=== PATIENT | female | born 1945 | race Caucasian/White ===

== ENCOUNTER 2018-01-15 17:42 | Inpatient (IN) ==
--- NOTE | 2018-01-15 18:23 | Emergency Department Note ---
Disposition Clinical Impression: Congestive heart failure, Frail elderly, Hypertension, Peripheral edema, Atrial fibrillation, History of coronary artery disease, Anemia, Abnormal chest x-ray Disposition: Admitted As Inpatient Condition: Fair Referrals: Barbara Mcnamara CNP [Primary Care Provider] - Forms: ED Satisfaction Letter General Adult HPI - General Chief complaint: ED Shortness of Breath/Dyspnea Stated complaint: EDI Time Seen by Provider: 01/15/18 18:23 Source: patient Limitations: no limitations - History of Present Illness HPI Narrative: 72-year-old female reports emergency department complaining of increasing lower extremity swelling bilaterally which has been progressive. She usually goes to the wound center has her legs wrapped. She states she went to the wound center today and they noted increasing swelling so they sent her into the ED. The patient denies any chest pain she has been short of breath. No coughing of blood. She has no history of atrial fibrillation she does not describe palpitations or passing out. There is no history of fever abdominal pain vomiting diarrhea acute back pain confusion or any trouble moving the arms or legs independently. The patient describes increasing leg swelling, shortness of breath which is been progressive, as well as weight gain. She usually sees the [facility] Dr. Bryan. She states she is not anticoagulated at this time. Pain Scale: 9 - Related Data Home Medications Medication Instructions Recorded Confirmed Atorvastatin Calcium [Lipitor] 20 mg PO DAILY 12/19/17 01/15/18 Furosemide [Lasix] 40 mg PO DAILY 12/19/17 01/15/18 Warfarin [Coumadin] 2.5 mg PO DAILY 12/19/17 01/15/18 Metoprolol Succinate [Toprol Xl] 50 mg PO DAILY 12/22/17 01/15/18 Aspirin [Lo-Dose Aspirin EC] 81 mg PO DAILY 01/15/18 01/15/18 Allergies Allergy/AdvReac Type Severity Reaction Status Date / Time aspirin [ASA] AdvReac Abdominal Verified 01/15/18 20:42 Pain promethazine [From Phenergan] AdvReac Confusion Verified 01/15/18 14:04 All systems ED: reviewed and negative except as stated. Past Medical History - Past Medical History Medical history: Reports: atrial fibrillation, hyperlipidemia, hypertension, myocardial infarction, other Surgical history: Reports: , hysterectomy Psychiatric history: Reports: anxiety, depression - Social History Smoking Status: Never smoker Smokeless Tobacco Status: No Alcohol use: Reports: none Drug use: Reports: none Physical Exam - General Limitations: no limitations General appearance: alert, in no apparent distress - Head Head exam: atraumatic, normocephalic, normal inspection - Eye Eye exam: Present: normal appearance, PERRL, EOMI. Absent: scleral icterus, conjunctival injection, nystagmus - ENT ENT exam: normal exam, normal oropharynx, mucous membranes moist, TM's normal bilaterally - Neck Neck exam: Present: normal inspection, full ROM, trachea midline. Absent: tenderness - Chest Chest inspection: Present: symmetric chest wall rise. Absent: tenderness - Respiratory Respiratory exam: Present: prolonged expiratory phase. Absent: respiratory distress, wheezes, stridor, accessory muscle use - Cardiovascular Cardiovascular exam: Present: irregular rhythm - Abdominal Exam Abdominal exam: Present: soft, Non-Tender, normal bowel sounds. Absent: tenderness, distention, guarding, rebound, rigidity, Bryson's sign, Rovsing's sign, tenderness at McBurney's Point, pulsatile mass - Extremities Exam Extremities exam: Present: full ROM, normal capillary refill, pedal edema. Absent: tenderness, joint swelling, calf tenderness - Expanded Lower Extremity Exam Neurovascular/Tendon exam: Absent: motor deficit, sensory deficit, tendon deficit, pallor - Back Exam Back exam: Present: normal inspection, full ROM. Absent: tenderness, CVA tenderness (R), CVA tenderness (L), vertebral tenderness - Neurological Exam Neurological exam: Present: alert, oriented X3, CN II-XII intact. Absent: motor sensory deficit - Psychiatric Psychiatric exam: Present: normal affect, normal mood - Skin Skin exam: Present: warm, dry, intact, normal color. Absent: rash, cyanosis, diaphoresis, pallor, mottled Course Vital Signs Temperature 98.5 F 01/15/18 18:14 Pulse Rate 116 01/15/18 18:14 Respiratory Rate 18 01/15/18 18:14 Blood Pressure 190/98 01/15/18 18:14 O2 Sat by Pulse Oximetry 95 01/15/18 18:14 Temperature 98.5 F 01/15/18 18:14 Pulse Rate 116 01/15/18 20:30 Respiratory Rate 16 01/15/18 20:30 Blood Pressure 172/104 01/15/18 20:30 O2 Sat by Pulse Oximetry 96 01/15/18 20:30 Oxygen Delivery Oxygen Delivery Room Air Medical Decision Making - MDM Narrative Medical decision making narrative: The patient has significant lower extremity edema, her chest x-ray shows changes suggestive of potential infiltrate versus increasing fluid, she has been dyspneic and has a notable history of CAD, CHF, as well as atrial fibrillation. Blood cultures were sent Levaquin were ordered, Lasix ordered. The patient has significant elevated blood pressures in the ED and evidences poor control. Based on her age, pulmonary symptomatology, cardiovascular risk factors, apparent CHF with potential pneumonia as well as hypertension, I thought it a would be appropriate to admit the patient to the hospital. I discussed the case with the hospitalist on-call who has accepted the patient to their care. - Lab Data Lab results reviewed: Yes I reviewed the patient's lab results. Result diagrams: 01/15/18 18:44 01/15/18 18:44 Lab Results 01/15/18 01/15/18 01/15/18 Range/Units 18:34 18:44 18:44 WBC 6.9 (4.3-11.1) K/mcL RBC 3.86 (3.82-4.97) M/mcL Hgb 11.1 L (11.5-15.4) g/dL Hct 35.0 L (35.3-44.9) % MCV 90.7 (83.0-100.0) fL MCH 28.8 (28.0-33.3) pg MCHC 31.7 (31.6-35.5) g/dL RDW 13.1 (11.5-14.5) % Plt Count 240 (140-400) K/mcL MPV 8.7 L (9.4-12.4) fL Immature Gran % 0.6 (0-4) % Seg Neutrophils % 71.4 % Lymphocytes % 16.5 % Monocytes % 7.8 % Eosinophils % 3.0 % Basophils % 0.7 % Neutrophils # 4.9 (1.6-8.9) K/mcL Lymphocytes # 1.1 (0.6-4.6) K/mcL Monocytes # 0.5 (0.0-1.3) K/mcL Eosinophils # 0.2 (0.0-0.6) K/mcL Basophils # 0.1 (0.0-0.2) K/mcL PT 11.5 (9.4-12.1) Seconds INR 1.1 APTT 26.6 (26.0-36.0) Seconds Sodium (136-145) mEq/L Potassium (3.5-5.1) mEq/L Chloride (98-107) mEq/L Carbon Dioxide (23-29) mEq/L BUN (8-23) mg/dL Creatinine (0.60-1.20) mg/dL Est GFR ( Amer) (> 60) Est GFR (Non-Af Amer) (> 60) BUN/Creatinine Ratio (6-26) Glucose (70-105) mg/dL Calculated Osmolality (280-300) Lactic Acid (0.5-2.2) mmol/L Calcium (8.6-10.3) mg/dL Total Bilirubin (0.3-1.0) mg/dL Direct Bilirubin (0.0-0.2) mg/dL Indirect Bilirubin (0.0-1.2) mg/dL AST (13-39) Units/L ALT (7-52) Units/L Alkaline Phosphatase (34-104) Units/L Troponin I (< 0.04) ng/mL B-Natriuretic Peptide (Less than 100) pg/mL Serum Total Protein (6.4-8.9) g/dL Albumin (3.5-5.7) g/dL Globulin (2.4-3.5) g/dL Albumin/Globulin Ratio (1.1-2.2) Urine Color Yellow (Yellow) Urine Clarity Clear (Clear) Urine pH 6.0 (5.0-8.0) pH Units Ur Specific [place] 1.019 (1.010-1.025) Urine Protein Negative (Neg-Trace) mg/dL Urine Glucose (UA) Normal (Normal) mg/dL Urine Ketones Negative (Negative) mg/dL Urine Blood Trace H (Negative) Urine Nitrite Negative (Negative) Urine Bilirubin Negative (Negative) Urine Urobilinogen Normal (Normal) mg/dL Ur Leukocyte Esterase Negative (Negative) Urine Microscopic RBC 0-3 (0-3) per hpf Urine Microscopic WBC 0-3 (0-3) per hpf Ur Squamous Epith Cells Moderate H (None-Few) per lpf Urine Bacteria None Seen (None-Few) per hpf Hyaline Casts None Seen (None-Few) per lpf Ur Culture Indicated? NO (NO) 01/15/18 01/15/18 01/15/18 Range/Units 18:44 18:44 19:21 WBC (4.3-11.1) K/mcL RBC (3.82-4.97) M/mcL Hgb (11.5-15.4) g/dL Hct (35.3-44.9) % MCV (83.0-100.0) fL MCH (28.0-33.3) pg MCHC (31.6-35.5) g/dL RDW (11.5-14.5) % Plt Count (140-400) K/mcL MPV (9.4-12.4) fL Immature Gran % (0-4) % Seg Neutrophils % % Lymphocytes % % Monocytes % % Eosinophils % % Basophils % % Neutrophils # (1.6-8.9) K/mcL Lymphocytes # (0.6-4.6) K/mcL Monocytes # (0.0-1.3) K/mcL Eosinophils # (0.0-0.6) K/mcL Basophils # (0.0-0.2) K/mcL PT (9.4-12.1) Seconds INR APTT (26.0-36.0) Seconds Sodium 138 (136-145) mEq/L Potassium 3.9 (3.5-5.1) mEq/L Chloride 106 (98-107) mEq/L Carbon Dioxide 22 L (23-29) mEq/L BUN 14 (8-23) mg/dL Creatinine 0.74 (0.60-1.20) mg/dL Est GFR ( Amer) > 60 (> 60) Est GFR (Non-Af Amer) > 60 (> 60) BUN/Creatinine Ratio 19 (6-26) Glucose 96 (70-105) mg/dL Calculated Osmolality 286 (280-300) Lactic Acid 1.2 (0.5-2.2) mmol/L Calcium 8.9 (8.6-10.3) mg/dL Total Bilirubin 0.4 (0.3-1.0) mg/dL Direct Bilirubin 0.2 (0.0-0.2) mg/dL Indirect Bilirubin 0.2 (0.0-1.2) mg/dL AST 16 (13-39) Units/L ALT 11 (7-52) Units/L Alkaline Phosphatase 89 (34-104) Units/L Troponin I < 0.03 (< 0.04) ng/mL B-Natriuretic Peptide 430 H (Less than 100) pg/mL Serum Total Protein 6.8 (6.4-8.9) g/dL Albumin 3.5 (3.5-5.7) g/dL Globulin 3.3 (2.4-3.5) g/dL Albumin/Globulin Ratio 1.1 (1.1-2.2) Urine Color (Yellow) Urine Clarity (Clear) Urine pH (5.0-8.0) pH Units Ur Specific [place] (1.010-1.025) Urine Protein (Neg-Trace) mg/dL Urine Glucose (UA) (Normal) mg/dL Urine Ketones (Negative) mg/dL Urine Blood (Negative) Urine Nitrite (Negative) Urine Bilirubin (Negative) Urine Urobilinogen (Normal) mg/dL Ur Leukocyte Esterase (Negative) Urine Microscopic RBC (0-3) per hpf Urine Microscopic WBC (0-3) per hpf Ur Squamous Epith Cells (None-Few) per lpf Urine Bacteria (None-Few) per hpf Hyaline Casts (None-Few) per lpf Ur Culture Indicated? (NO) - Radiology Data Radiology results reviewed: Yes I reviewed the patient's radiology results.
[2018-01-15 18:50] LABS: Bilirubin,Urine Negative (Negative); Blood,Urine Trace (Negative); Clarity,Urine Clear (Clear); Color,Urine Yellow (Yellow); Glucose,Urine (UA) Normal (Normal); Ketones,Urine Negative (Negative); Leukocyte Esterase,Urine Negative (Negative); Nitrite,Urine Negative (Negative); Protein,Urine Negative (Neg-Trace); Specific Gravity,Urine 1.019 (1.010-1.025); Urobilinogen,Urine Normal (Normal)
[2018-01-15 18:53] LABS: Bacteria,Urine None Seen per hpf (None-Few); Hyaline Casts,Urine None Seen per lpf (None-Few); RBC,Urine 0-3 per hpf (0-3); Squamous Epithelial Cell,Urine Moderate per lpf (None-Few); WBC,Urine 0-3 per hpf (0-3)
[2018-01-15 19:02] LABS: Basophils # 0.1 K/mcL (0.0-0.2); Basophils % 0.7 %; Eosinophils # 0.2 K/mcL (0.0-0.6); Hemoglobin 11.1 g/dL (11.5-15.4); Immature Granulocytes % 0.6 % (0-4); Lymphocytes # 1.1 K/mcL (0.6-4.6); Lymphocytes % 16.5 %; Mean Corpuscular HGB Conc 31.7 g/dL (31.6-35.5); Mean Corpuscular Hemoglobin 28.8 pg (28.0-33.3); Mean Corpuscular Volume 90.7 fL (83.0-100.0); Mean Platelet Volume 8.7 fL (9.4-12.4); Monocytes # 0.5 K/mcL (0.0-1.3); Monocytes % 7.8 %; Neutrophils # 4.9 K/mcL (1.6-8.9); Platelet Count 240 K/mcL (140-400); Red Blood Count 3.86 M/mcL (3.82-4.97); Red Cell Distribution Width 13.1 % (11.5-14.5); Segmented Neutrophils % 71.4 %
[2018-01-15 19:07] LABS: INR 1.1; Prothrombin Time 11.5 Seconds (9.4-12.1)
[2018-01-15 19:10] LABS: Activated Partial Thrombo Time 26.6 Seconds (26.0-36.0)
[2018-01-15 19:16] LABS: Troponin I < 0.03 ng/mL (< 0.04)
[2018-01-15 19:31] LABS: Alanine Aminotransferase 11 Units/L (7-52); Albumin 3.5 g/dL (3.5-5.7); Albumin/Globulin Ratio 1.1 (1.1-2.2); Alkaline Phosphatase 89 Units/L (34-104); Aspartate Amino Transferase 16 Units/L (13-39); BUN/Creatinine Ratio 19 (6-26); Bilirubin,Direct 0.2 mg/dL (0.0-0.2); Bilirubin,Indirect 0.2 mg/dL (0.0-1.2); Bilirubin,Total 0.4 mg/dL (0.3-1.0); Blood Urea Nitrogen 14 mg/dL (8-23); Calcium 8.9 mg/dL (8.6-10.3); Carbon Dioxide 22 mEq/L (23-29); Chloride 106 mEq/L (98-107); Globulin 3.3 g/dL (2.4-3.5); Glucose 96 mg/dL (70-105); Osmolality,Calculated 286 (280-300); Potassium 3.9 mEq/L (3.5-5.1); Sodium 138 mEq/L (136-145); Total Protein 6.8 g/dL (6.4-8.9); eGFR For African Americans > 60 (> 60); eGFR For Non-African Americans > 60 (> 60)
[2018-01-15] MEDS ORDERED: Levofloxacin 750 MG/150 ML 750 MG/150 ML BAG IVPB ONE (20:03)
[2018-01-15] MEDS ORDERED: Furosemide 80 MG in 0.9 % Sodium Chloride 50 ML IVPB ONE (20:04)
[2018-01-15] MEDS ORDERED: Nitroglycerin 1 INCH/GM PACKET TP ONE (20:18)
[2018-01-15] MEDS ORDERED: Furosemide 100 MG/10 ML VIAL ONE (20:32)
--- NOTE | 2018-01-15 21:27 | Internal Med History&Physical ---
Date of Encounter: 01/15/18 Time of Encounter: 21:24 Assessment and Plan (1) Congestive heart failure Current visit: Yes Status: Acute I do not see TTE from prior. We will order an echo in the morning. We will aggressively diuresed with IV Lasix, low-salt diet, I's and O's Qualifiers: Heart failure type: combined systolic and diastolic Qualified Code(s): I50.40 - Unspecified combined systolic (congestive) and diastolic (congestive) heart failure (2) Atrial fibrillation Current visit: Yes Status: Acute Continue Coumadin, trend INR, continue rate control, check magnesium and potassium Qualifiers: Atrial fibrillation type: chronic Qualified Code(s): I48.2 - Chronic atrial fibrillation (3) Abnormal chest x-ray Current visit: Yes Status: Acute Based on clinical history I have less a suspicion this represents pneumonia. We would diabetes patient IV Lasix, aggressive incentive spirometer, repeat 2 view x-ray in the morning She has been given Levaquin in the ER for empiric pneumonia therapy Further management pending hospital course (4) Hypertension Current visit: Yes Status: Acute on medicines Qualifiers: Hypertension type: essential hypertension Qualified Code(s): I10 - Essential (primary) hypertension Internal Medicine - H&P: HPI Chief complaint: SOB, LE swelling History of present illness: Ms. Santana is a 72 year old female with hx of AFib, CHF who presents with progressive SOB, LE swelling suspicious for CHF flare. Patient is under the care of Dr. Bryan and has a history of CHF on 40 mg by mouth Lasix every day. She has lower extremity swelling and visits the wound center 3 times weekly for compression bandages. She was advised by wound care clinic to present to the hospital due to worsening of lower extremity swelling. In addition she is also experiencing progressively worsening shortness of breath in the past 2 weeks with dyspnea on exertion from the car to her house. She does not use oxygen at baseline. She reports expressing weight gain from 130 pounds 170 pounds in the last 5-6 months. On review she denies any fevers, chills, cough, nasal congestion, note that she gives overt clinical symptoms of pneumonia She is on Coumadin for atrial fibrillation. EKG personally reviewed with atrial fibrillation, rate 97 XR/XR chest 1V portable IMPRESSION: Patchy airspace disease in the lower lungs bilaterally, greater on the right, atelectasis versus edema versus pneumonia. Cardial -pericardial silhouette enlargement. Again, no comparisons are available to gauge stability. In this situation, differential considerations include both pericardial effusion and cardiomyopathy. Past Med Surg Social Fam HX - Past Medical History Medical history: atrial fibrillation, hyperlipidemia, hypertension, myocardial infarction, other Psychiatric history: anxiety, depression - Past Surgical History Surgical History: , hysterectomy - Social History Smoking Status: Never smoker Smokeless Tobacco Status: No Alcohol use: none Drug use: none - Family History Mother Family Member Ethnicity: Non- Living Status: Hx Family Cardiac Disorders: Yes Hx Family Respiratory Disorders: No Hx Family Cancer: Yes Hx Family GI Disorders: No Hx Family Endocrine Disorder: No Hx Family Neuromuscular Disorders: No Hx Family Neurologic Disorders: No Hx Family HEENT Disorders: No Hx Family Autoimmune Disorders: Yes Internal Medicine - H&P: Meds Atorvastatin Calcium [Lipitor] 20 mg PO HS 12/19/17 [History] Metoprolol Succinate [Toprol Xl] 50 mg PO DAILY 12/22/17 [History] Aspirin [Lo-Dose Aspirin EC] 81 mg PO DAILY 01/15/18 [History] Buspirone HCl [Buspar] 7.5 mg PO BID PRN 01/15/18 [History] Furosemide [Lasix] 40 mg PO DAILY 01/15/18 [History] Lisinopril [Zestril] 10 mg PO DAILY 01/15/18 [History] Nitroglycerin [Nitrostat] 0.4 mg SL Q5M PRN 01/15/18 [History] Warfarin Sodium [Warfarin Sodium] 3 mg PO DAILY 01/15/18 [History] 3 Allergy/AdvReac Type Severity Reaction Status Date / Time aspirin [ASA] AdvReac Abdominal Verified 01/15/18 20:42 Pain promethazine [From Phenergan] AdvReac Confusion Verified 01/15/18 14:04 All Systems PM: A 10-system review of systems was performed and is negative for pertinent findings except as documented above in the HPI. Review of systems: ROS 14 point review of systems reviewed as best as possible given presentation. Pertinent positive or negative as per HPI or otherwise reviewed as negative - Constitutional Vitals: Temp Pulse Resp BP Pulse Ox 98.5 F 116 16 172/104 96 01/15/18 18:14 01/15/18 20:30 01/15/18 20:30 01/15/18 20:30 01/15/18 20:30 Exam: General - AAO x 3 Psych - Appropriate affect/speech. No agitation Eyes - NICHOLAS. Eye lids intact. No scleral icterus Neuro - No gross peripheral or central neuro deficits on inspection Heart - Sinus. RRR. S1 and S2 present. No added HS/murmurs appreciated. No elevated JVD appreciated. Lung - Adequate air entry b/l, bibasal crackles, no wheeze appreciated GI - Soft, non-tender. No hepatosplenomegaly/ascites. BS+ - No CVA/suprapubic tenderness or palpable bladder distension Skin - Intact. No rash/petechiae/ecchymosis. Her extremity with compression bandage Internal Med - H&P Results - Labs CBC & Chem 7: 01/15/18 18:44 01/15/18 18:44 Labs: Short CBC 01/15/18 01/15/18 01/15/18 Range/Units 18:34 18:44 18:44 WBC 6.9 (4.3-11.1) K/mcL RBC 3.86 (3.82-4.97) M/mcL Hgb 11.1 L (11.5-15.4) g/dL Hct 35.0 L (35.3-44.9) % MCV 90.7 (83.0-100.0) fL MCH 28.8 (28.0-33.3) pg MCHC 31.7 (31.6-35.5) g/dL RDW 13.1 (11.5-14.5) % Plt Count 240 (140-400) K/mcL MPV 8.7 L (9.4-12.4) fL Immature Gran % 0.6 (0-4) % Seg Neutrophils % 71.4 % Lymphocytes % 16.5 % Monocytes % 7.8 % Eosinophils % 3.0 % Basophils % 0.7 % Neutrophils # 4.9 (1.6-8.9) K/mcL Lymphocytes # 1.1 (0.6-4.6) K/mcL Monocytes # 0.5 (0.0-1.3) K/mcL Eosinophils # 0.2 (0.0-0.6) K/mcL Basophils # 0.1 (0.0-0.2) K/mcL PT 11.5 (9.4-12.1) Seconds INR 1.1 APTT 26.6 (26.0-36.0) Seconds Sodium (136-145) mEq/L Potassium (3.5-5.1) mEq/L Chloride (98-107) mEq/L Carbon Dioxide (23-29) mEq/L BUN (8-23) mg/dL Creatinine (0.60-1.20) mg/dL Est GFR ( Amer) (> 60) Est GFR (Non-Af Amer) (> 60) BUN/Creatinine Ratio (6-26) Glucose (70-105) mg/dL Calculated Osmolality (280-300) Lactic Acid (0.5-2.2) mmol/L Calcium (8.6-10.3) mg/dL Total Bilirubin (0.3-1.0) mg/dL Direct Bilirubin (0.0-0.2) mg/dL Indirect Bilirubin (0.0-1.2) mg/dL AST (13-39) Units/L ALT (7-52) Units/L Alkaline Phosphatase (34-104) Units/L Troponin I (< 0.04) ng/mL B-Natriuretic Peptide (Less than 100) pg/mL Serum Total Protein (6.4-8.9) g/dL Albumin (3.5-5.7) g/dL Globulin (2.4-3.5) g/dL Albumin/Globulin Ratio (1.1-2.2) Urine Color Yellow (Yellow) Urine Clarity Clear (Clear) Urine pH 6.0 (5.0-8.0) pH Units Ur Specific [place] 1.019 (1.010-1.025) Urine Protein Negative (Neg-Trace) mg/dL Urine Glucose (UA) Normal (Normal) mg/dL Urine Ketones Negative (Negative) mg/dL Urine Blood Trace H (Negative) Urine Nitrite Negative (Negative) Urine Bilirubin Negative (Negative) Urine Urobilinogen Normal (Normal) mg/dL Ur Leukocyte Esterase Negative (Negative) Urine Microscopic RBC 0-3 (0-3) per hpf Urine Microscopic WBC 0-3 (0-3) per hpf Ur Squamous Epith Cells Moderate H (None-Few) per lpf Urine Bacteria None Seen (None-Few) per hpf Hyaline Casts None Seen (None-Few) per lpf Ur Culture Indicated? NO (NO) 01/15/18 01/15/18 01/15/18 Range/Units 18:44 18:44 19:21 WBC (4.3-11.1) K/mcL RBC (3.82-4.97) M/mcL Hgb (11.5-15.4) g/dL Hct (35.3-44.9) % MCV (83.0-100.0) fL MCH (28.0-33.3) pg MCHC (31.6-35.5) g/dL RDW (11.5-14.5) % Plt Count (140-400) K/mcL MPV (9.4-12.4) fL Immature Gran % (0-4) % Seg Neutrophils % % Lymphocytes % % Monocytes % % Eosinophils % % Basophils % % Neutrophils # (1.6-8.9) K/mcL Lymphocytes # (0.6-4.6) K/mcL Monocytes # (0.0-1.3) K/mcL Eosinophils # (0.0-0.6) K/mcL Basophils # (0.0-0.2) K/mcL PT (9.4-12.1) Seconds INR APTT (26.0-36.0) Seconds Sodium 138 (136-145) mEq/L Potassium 3.9 (3.5-5.1) mEq/L Chloride 106 (98-107) mEq/L Carbon Dioxide 22 L (23-29) mEq/L BUN 14 (8-23) mg/dL Creatinine 0.74 (0.60-1.20) mg/dL Est GFR ( Amer) > 60 (> 60) Est GFR (Non-Af Amer) > 60 (> 60) BUN/Creatinine Ratio 19 (6-26) Glucose 96 (70-105) mg/dL Calculated Osmolality 286 (280-300) Lactic Acid 1.2 (0.5-2.2) mmol/L Calcium 8.9 (8.6-10.3) mg/dL Total Bilirubin 0.4 (0.3-1.0) mg/dL Direct Bilirubin 0.2 (0.0-0.2) mg/dL Indirect Bilirubin 0.2 (0.0-1.2) mg/dL AST 16 (13-39) Units/L ALT 11 (7-52) Units/L Alkaline Phosphatase 89 (34-104) Units/L Troponin I < 0.03 (< 0.04) ng/mL B-Natriuretic Peptide 430 H (Less than 100) pg/mL Serum Total Protein 6.8 (6.4-8.9) g/dL Albumin 3.5 (3.5-5.7) g/dL Globulin 3.3 (2.4-3.5) g/dL Albumin/Globulin Ratio 1.1 (1.1-2.2) Urine Color (Yellow) Urine Clarity (Clear) Urine pH (5.0-8.0) pH Units Ur Specific [place] (1.010-1.025) Urine Protein (Neg-Trace) mg/dL Urine Glucose (UA) (Normal) mg/dL Urine Ketones (Negative) mg/dL Urine Blood (Negative) Urine Nitrite (Negative) Urine Bilirubin (Negative) Urine Urobilinogen (Normal) mg/dL Ur Leukocyte Esterase (Negative) Urine Microscopic RBC (0-3) per hpf Urine Microscopic WBC (0-3) per hpf Ur Squamous Epith Cells (None-Few) per lpf Urine Bacteria (None-Few) per hpf Hyaline Casts (None-Few) per lpf Ur Culture Indicated? (NO) BMP 01/15/18 18:44 Sodium 138 Potassium 3.9 Chloride 106 Carbon Dioxide 22 L BUN 14 Creatinine 0.74 Glucose 96 Calcium 8.9 Cardiac Enzymes 01/15/18 Range/Units 18:44 Troponin I < 0.03 (< 0.04) ng/mL Liver Function 01/15/18 Range/Units 18:44 Total Bilirubin 0.4 (0.3-1.0) mg/dL Direct Bilirubin 0.2 (0.0-0.2) mg/dL AST 16 (13-39) Units/L ALT 11 (7-52) Units/L Alkaline Phosphatase 89 (34-104) Units/L Albumin 3.5 (3.5-5.7) g/dL Urine 01/15/18 Range/Units 18:34 Urine Color Yellow (Yellow) Urine Clarity Clear (Clear) Urine pH 6.0 (5.0-8.0) pH Units Ur Specific [place] 1.019 (1.010-1.025) Urine Protein Negative (Neg-Trace) mg/dL Urine Glucose (UA) Normal (Normal) mg/dL - Impressions ITS Impressions Chest X-Ray 01/15/18 18:24 IMPRESSION: Patchy airspace disease in the lower lungs bilaterally, greater on the right, atelectasis versus edema versus pneumonia. Cardial -pericardial silhouette enlargement. Again, no comparisons are available to gauge stability. In this situation, differential considerations include both pericardial effusion and cardiomyopathy. D/ / Jax Traore MD / Jax Traore MD Interpreting Provider: Jax Traore MD
[2018-01-15] MEDS ORDERED: Naloxone 0.4 MG/ML INJ IVP PRN (21:32)
[2018-01-15] MEDS ORDERED: Potassium Chloride Elixir 20 MEQ/15 ML UDC PO ONE (21:36)
[2018-01-16] MEDS ORDERED: Acetaminophen/Butalbital/CaffeineTABLET PO PRN (02:35)
[2018-01-16] MEDS: *HR* Metoprolol 5 MG/5 ML VIAL IVP PRN (03:15)
[2018-01-16] MEDS: Acetaminophen 325 MG TABLET PO PRN ×2 (06:15→17:42)
[2018-01-16 07:30] LABS: INR 1.2; Prothrombin Time 13.3 Seconds (9.4-12.1)
[2018-01-16 07:33] LABS: BUN/Creatinine Ratio 14 (6-26); Blood Urea Nitrogen 12 mg/dL (8-23); Calcium 8.8 mg/dL (8.6-10.3); Carbon Dioxide 28 mEq/L (23-29); Chloride 104 mEq/L (98-107); Glucose 111 mg/dL (70-105); Magnesium 1.8 mg/dL (1.6-2.6); Osmolality,Calculated 286 (280-300); Sodium 138 mEq/L (136-145); eGFR For African Americans > 60 (> 60); eGFR For Non-African Americans > 60 (> 60)
[2018-01-16] MEDS: Furosemide 40 MG/4 ML VIAL IVP SCH (10:26)
[2018-01-16] MEDS: Metoprolol XL (24 HR) Succ 50 MG TAB.ER.24H PO SCH (14:16)
[2018-01-16] MEDS: Aspirin Enteric Coated 81 MG Tablet PO SCH (14:16)
--- NOTE | 2018-01-16 17:19 | Internal Med Progress Note ---
Date of Encounter: 01/16/18 Time of Encounter: 17:13 - Assessment and plan (1) Acute diastolic heart failure Current Visit: Yes Status: Acute Assessment and plan: suspected. Presented with progressive, worsening SOB. BNP 430, CXR concerning for edema versus pneumonia. Symptoms more consistent with pulmonary edema with lower extremity edema, shortness of breath, afebrile and nonproductive cough. Repeat CXR with improvement and edema after IV Lasix. TTE with EF 60%, and indeterminate systolic dysfunction, [id number] tricuspid regurgitation and mild pulmonic regurgitation. Continue home ASA, BB. Continue IV diuresis for now, daily weights, strict I's and O's. (2) Wound of lower extremity Current Visit: Yes Status: Acute Assessment and plan: per hx. follows with wound clinic. Consult wound care, bilateral lower extreme Dopplers pending. Qualifiers: Encounter type: initial encounter Laterality: unspecified laterality Qualified Code(s): S81.809A - Unspecified open wound, unspecified lower leg, initial encounter (3) Atrial fibrillation Current Visit: Yes Status: Acute Assessment and plan: per hx. Rate controlled. Cont home BBjovita Qualifiers: Atrial fibrillation type: chronic Qualified Code(s): I48.2 - Chronic atrial fibrillation (4) Hypertension Current Visit: Yes Status: Acute Assessment and plan: per hx. BP uncontrolled. Continue home VIGNESH, add amlodipine. Monitor BP and titrate PRN Qualifiers: Hypertension type: essential hypertension Qualified Code(s): I10 - Essential (primary) hypertension (5) DVT prophylaxis Current Visit: Yes Status: Acute Assessment and plan: coumadin - Subjective Interval history: Seen and examined at bedside, patient is new to me. Information obtained from chart review, family at bedside and patient report. Still with complaint of shortness of breath with exertion however significantly improved. Denies shortness of breath at rest. No chest pain. Patient reports chronic back pain that prevents her from laying flat therefore she sits up all night long likely contributing to lower extremity edema. Follows with the wound care clinic for weekly dressing changes. - Constitutional Vitals: Temp Pulse Resp BP Pulse Ox 98.3 F 96 14 151/103 97 01/16/18 10:25 01/16/18 10:25 01/16/18 10:25 01/16/18 10:25 01/16/18 10:25 General appearance: Present: A&O X 3, no acute distress - Head Head exam: Present: atraumatic, normocephalic - Eye Eye exam: Present: PERRL, conjuntiva pink, sclera anicteric Pupils: Present: PERRL - Neck Neck exam general surgery: Present: supple, trachea midline. Absent: lymphadenopathy - Respiratory Respiratory exam: Present: decreased breath sounds. Absent: accessory muscle use, rales, rhonchi, wheezes - Cardiovascular Cardiovascular exam: Present: RRR, +S1, +S2. Absent: diastolic murmur, gallop, rubs, systolic murmur - GI/Abdominal GI/Abdominal exam: Present: normal bowel sounds, soft, no peritoneal signs. Absent: distended, tenderness - Extremities Exam Extremities exam: Present: pedal edema, warm, radial pulses palpable and symmetrical. Absent: calf tenderness, cyanotic - Neurological Exam Neurological exam: Present: CN II-XII intact, oriented X3, no focal deficits. Absent: pronater drift, facial droop, speech deficit - Skin Skin exam: Present: dry, intact Internal Medicine: Result - Labs CBC & Chem 7: 01/15/18 18:44 01/16/18 06:35 Labs: BMP 01/16/18 06:35 Sodium 138 Potassium 4.0 Chloride 104 Carbon Dioxide 28 BUN 12 Creatinine 0.83 Glucose 111 H Calcium 8.8 - ABG Interpretation ABG results: PT/INR, D-dimer PT 13.3 Seconds (9.4-12.1) H 01/16/18 06:35 - Impressions Impressions Chest X-Ray 01/16/18 09:00 IMPRESSION: Overall improvement of mild pulmonary edema. Small bilateral pleural effusions noted. D/ / Elsie Jack MD / Elsie Jack MD Interpreting Provider: Elsie Jack MD Echocardiogram 01/16/18 11:00 Impressions: LVEF 60-65%. Mild concentric left ventricular hypertrophy. Basal sigmoid septum. Indeterminate diastolic function. Normal right ventricular structure and function. Severe bi-atrial enlargement. Mild-moderate tricuspid regurgitation. Mild pulmonic regurgitation. Moderate pulmonary hypertension. Left Ventricular Wall Motion: Rest Echo Findings All wall segments showed normal motion. Findings: Study Quality * Technically adequate exam. ECG Findings * Atrial fibrillation. Left Ventricle * LVEF 60-65%. * Mild concentric left ventricular hypertrophy. * Basal sigmoid septum. * Indeterminate diastolic function. Right Ventricle * Normal right ventricular structure and function. Left Atrium * Severely dilated left atrium. Right Atrium * Severely dilated right atrium. Mitral Valve * Mild-moderate mitral regurgitation. * No mitral stenosis. * Mildly calcified mitral valve leaflets. Aortic Valve * No aortic regurgitation. * Aortic valve not well visualized. * No aortic stenosis. Tricuspid Valve * Normal tricuspid valve structure. * Mild-moderate tricuspid regurgitation. * Estimated RA pressure is 8 mmHg. * Estimated RVSP is 51 mmHg. * Moderate pulmonary hypertension. Pulmonic Valve * Pulmonic valve is not well visualized. * No pulmonic stenosis. * Mild pulmonic regurgitation. Pulmonary Artery * Pulmonary artery not well visualized. Aorta * Normally sized aortic root. Pericardium * There is no pericardial effusion present. Interatrial Septum * No evidence of PFO by color Doppler. IVC * The IVC is not dilated. * < 50% respiratory change. Consult Discharge Plan - Plan Referrals: Barbara Mcnamara, [employer] [Primary Care Provider] -
[2018-01-16] MEDS: *HR* Warfarin 5 MG TABLET PO SCH (17:42)
[2018-01-16] MEDS ORDERED: *HR* Warfarin 3 MG TABLET PO SCH (18:00)
[2018-01-16] MEDS: amLODIPine 5 MG TABLET PO SCH (20:04)
[2018-01-17] MEDS: *HR* Metoprolol 5 MG/5 ML VIAL IVP PRN (04:10)
[2018-01-17 05:14] LABS: INR 1.2; Prothrombin Time 12.6 Seconds (9.4-12.1)
[2018-01-17 05:22] LABS: BUN/Creatinine Ratio 22 (6-26); Blood Urea Nitrogen 18 mg/dL (8-23); Calcium 8.6 mg/dL (8.6-10.3); Carbon Dioxide 29 mEq/L (23-29); Chloride 103 mEq/L (98-107); Glucose 100 mg/dL (70-105); Magnesium 1.9 mg/dL (1.6-2.6); Osmolality,Calculated 288 (280-300); Potassium 3.8 mEq/L (3.5-5.1); Sodium 138 mEq/L (136-145); eGFR For African Americans > 60 (> 60); eGFR For Non-African Americans > 60 (> 60)
--- NOTE | 2018-01-17 06:38 | Electrocardiograph Report ---
[place] [id number] Test Date: 2018-01-15 Pat Name: Khalida Santana Department: 103 Room: 2N4 Gender: F Top Screw: EKP : 1945 Requested By: Valentín Banda Order Number: [id number] Reading MD: Kale Dent MD Measurements Intervals [place] Rate: 97 P: ME: 0 QRS: -6 QRSD: 82 T: 5 QT: 357 QTc: 412 Interpretive Statements ATRIAL FIBRILLATION Electronically Signed On 01-17-2018 6:36:42 EDT by Kale Dent MD
[2018-01-17] MEDS: Furosemide 40 MG/4 ML VIAL IVP SCH (10:04)
[2018-01-17] MEDS: amLODIPine 5 MG TABLET PO SCH (10:04)
[2018-01-17] MEDS: Metoprolol XL (24 HR) Succ 50 MG TAB.ER.24H PO SCH (10:04)
[2018-01-17] MEDS: Aspirin Enteric Coated 81 MG Tablet PO SCH (10:04)
--- NOTE | 2018-01-17 11:11 | Internal Med Progress Note ---
Date of Encounter: 01/17/18 Time of Encounter: 11:09 - Assessment and plan (1) Acute diastolic heart failure Current Visit: Yes Status: Acute Assessment and plan: suspected. Presented with progressive, worsening SOB. BNP 430, CXR concerning for edema versus pneumonia. Symptoms more consistent with pulmonary edema with lower extremity edema, shortness of breath, afebrile and nonproductive cough. Repeat CXR with improvement and edema after IV Lasix. TTE with EF 60%, and indeterminate systolic dysfunction, [id number] tricuspid regurgitation and mild pulmonic regurgitation. Continue home ASA, BB. Daily weights reviewed and she is down 3 kg from admission; continue IV diuresis for now, daily weights, strict I's and O's. (2) Wound of lower extremity Current Visit: Yes Status: Acute Assessment and plan: per hx. Follows with wound clinic. Bilateral lower extreme Dopplers negative for DVT. SPECT she would benefit from short-term SNF placement PT/OT consult. Wound care consulted Qualifiers: Encounter type: initial encounter Laterality: unspecified laterality Qualified Code(s): S81.809A - Unspecified open wound, unspecified lower leg, initial encounter (3) Atrial fibrillation Current Visit: Yes Status: Acute Assessment and plan: per hx. Rate controlled. Cont home BBjovita Qualifiers: Atrial fibrillation type: chronic Qualified Code(s): I48.2 - Chronic atrial fibrillation (4) Hypertension Current Visit: Yes Status: Acute Assessment and plan: per hx. BP uncontrolled. Continue home VIGNESH, add amlodipine. Monitor BP and titrate PRN Qualifiers: Hypertension type: essential hypertension Qualified Code(s): I10 - Essential (primary) hypertension (5) DVT prophylaxis Current Visit: Yes Status: Acute Assessment and plan: coumadin - Subjective Interval history: Seen and examined at bedside; says breathing is much better but she still gets SOB with exertion. Swelling in the legs significantly improved as well. She is agreeable to PT/OT consultation. - Constitutional Vitals: Temp Pulse Resp BP Pulse Ox 98.3 F 91 16 155/79 96 01/17/18 07:53 01/17/18 07:53 01/17/18 07:53 01/17/18 07:53 01/17/18 07:53 General appearance: Present: A&O X 3, no acute distress - Head Head exam: Present: atraumatic, normocephalic - Eye Eye exam: Present: PERRL, conjuntiva pink, sclera anicteric Pupils: Present: PERRL - Neck Neck exam general surgery: Present: supple, trachea midline. Absent: lymphadenopathy - Respiratory Respiratory exam: Present: CTAB. Absent: accessory muscle use, rales, rhonchi, wheezes - Cardiovascular Cardiovascular exam: Present: irregular rhythm, +S1, +S2. Absent: diastolic murmur, gallop, rubs, systolic murmur - GI/Abdominal GI/Abdominal exam: Present: normal bowel sounds, soft, no peritoneal signs. Absent: distended, tenderness - Extremities Exam Extremities exam: Present: pedal edema, warm, radial pulses palpable and symmetrical. Absent: calf tenderness, cyanotic - Neurological Exam Neurological exam: Present: CN II-XII intact, oriented X3, no focal deficits. Absent: pronater drift, facial droop, speech deficit - Skin Skin exam: Present: dry, intact Internal Medicine: Result - Labs CBC & Chem 7: 01/15/18 18:44 01/17/18 04:50 Labs: BMP 01/17/18 04:50 Sodium 138 Potassium 3.8 Chloride 103 Carbon Dioxide 29 BUN 18 Creatinine 0.83 Glucose 100 Calcium 8.6 - ABG Interpretation ABG results: PT/INR, D-dimer PT 12.6 Seconds (9.4-12.1) H 01/17/18 04:50 - Impressions Impressions Chest X-Ray 01/16/18 09:00 IMPRESSION: Overall improvement of mild pulmonary edema. Small bilateral pleural effusions noted. D/ / Elsie Jack MD / Elsie Jack MD Interpreting Provider: Elsie Jack MD Echocardiogram 01/16/18 11:00 Impressions: LVEF 60-65%. Mild concentric left ventricular hypertrophy. Basal sigmoid septum. Indeterminate diastolic function. Normal right ventricular structure and function. Severe bi-atrial enlargement. Mild-moderate tricuspid regurgitation. Mild pulmonic regurgitation. Moderate pulmonary hypertension. Left Ventricular Wall Motion: Rest Echo Findings All wall segments showed normal motion. Findings: Study Quality * Technically adequate exam. ECG Findings * Atrial fibrillation. Left Ventricle * LVEF 60-65%. * Mild concentric left ventricular hypertrophy. * Basal sigmoid septum. * Indeterminate diastolic function. Right Ventricle * Normal right ventricular structure and function. Left Atrium * Severely dilated left atrium. Right Atrium * Severely dilated right atrium. Mitral Valve * Mild-moderate mitral regurgitation. * No mitral stenosis. * Mildly calcified mitral valve leaflets. Aortic Valve * No aortic regurgitation. * Aortic valve not well visualized. * No aortic stenosis. Tricuspid Valve * Normal tricuspid valve structure. * Mild-moderate tricuspid regurgitation. * Estimated RA pressure is 8 mmHg. * Estimated RVSP is 51 mmHg. * Moderate pulmonary hypertension. Pulmonic Valve * Pulmonic valve is not well visualized. * No pulmonic stenosis. * Mild pulmonic regurgitation. Pulmonary Artery * Pulmonary artery not well visualized. Aorta * Normally sized aortic root. Pericardium * There is no pericardial effusion present. Interatrial Septum * No evidence of PFO by color Doppler. IVC * The IVC is not dilated. * < 50% respiratory change. Consult Discharge Plan - Plan Referrals: Barbara Mcnamara, CHIEF OF INTERNAL MEDICINE [Primary Care Provider] -
[2018-01-17] MEDS: *HR* Warfarin 5 MG TABLET PO SCH (17:50)
[2018-01-18] MEDS: Acetaminophen 325 MG TABLET PO PRN ×2 (02:43→21:51)
[2018-01-18 06:17] LABS: INR 1.2; Prothrombin Time 12.5 Seconds (9.4-12.1)
[2018-01-18 06:26] LABS: BUN/Creatinine Ratio 30 (6-26); Blood Urea Nitrogen 21 mg/dL (8-23); Calcium 8.6 mg/dL (8.6-10.3); Carbon Dioxide 27 mEq/L (23-29); Chloride 103 mEq/L (98-107); Glucose 105 mg/dL (70-105); Magnesium 1.9 mg/dL (1.6-2.6); Osmolality,Calculated 287 (280-300); Potassium 3.8 mEq/L (3.5-5.1); Sodium 137 mEq/L (136-145); eGFR For African Americans > 60 (> 60); eGFR For Non-African Americans > 60 (> 60)
[2018-01-18] MEDS: Furosemide 40 MG/4 ML VIAL IVP SCH (10:32)
[2018-01-18] MEDS: amLODIPine 5 MG TABLET PO SCH (10:33)
[2018-01-18] MEDS: Aspirin Enteric Coated 81 MG Tablet PO SCH (10:33)
[2018-01-18] MEDS: Metoprolol XL (24 HR) Succ 50 MG TAB.ER.24H PO SCH (10:34)
--- NOTE | 2018-01-18 15:42 | Internal Med Progress Note ---
Date of Encounter: 01/18/18 Time of Encounter: 15:48 - Assessment and plan (1) Acute diastolic heart failure Current Visit: Yes Status: Acute Assessment and plan: suspected. Presented with progressive, worsening SOB. BNP 430, CXR concerning for edema versus pneumonia. Symptoms more consistent with pulmonary edema with lower extremity edema, shortness of breath, afebrile and nonproductive cough. Repeat CXR with improvement and edema after IV Lasix. TTE with EF 60%, and indeterminate systolic dysfunction, [id number] tricuspid regurgitation and mild pulmonic regurgitation. Continue home ASA, BB. Diuresing well; -4 L. Still with CHEN and lower extremity edema; continue IV diuresis for now, daily weights, strict I's and O's. (2) Atrial fibrillation Current Visit: Yes Status: Acute Assessment and plan: per hx. Rate controlled. Cont home BB, couamdin (INR subtherapeutic, pharmacy dosing Coumadin). Qualifiers: Atrial fibrillation type: chronic Qualified Code(s): I48.2 - Chronic atrial fibrillation (3) Hypertension Current Visit: Yes Status: Acute Assessment and plan: per hx. BP uncontrolled. Continue home VIGNESH, BB, add amlodipine. Monitor BP and titrate PRN. BP improved on 01/18 review Qualifiers: Hypertension type: essential hypertension Qualified Code(s): I10 - Essential (primary) hypertension (4) Venous stasis of lower extremity Current Visit: Yes Status: Acute Assessment and plan: per hx. Follows with wound clinic. Bilateral lower extreme Dopplers negative for DVT. Cont local wound care per cool roofing installer recommendations. (5) DVT prophylaxis Current Visit: Yes Status: Acute Assessment and plan: coumadin - Subjective Interval history: Seen and examined at bedside; overall feels better. Still gets short of breath with exertion but significantly improved from admission. Says swelling in legs is significantly improved as well but not back to baseline. Discussed SNF with her and patient was initially agreeable however on afternoon rounds she tells me that she is not sure her will be okay with her going. I strongly encouraged her to reach out to her and discuss (husbands car is not working therefore he is not been unable to come to the hospital). - Constitutional Vitals: Temp Pulse Resp BP Pulse Ox 97.9 F 95 18 142/98 96 01/18/18 07:42 01/18/18 07:42 01/18/18 07:42 01/18/18 07:42 01/18/18 07:42 General appearance: Present: A&O X 3, no acute distress - Head Head exam: Present: atraumatic, normocephalic - Eye Eye exam: Present: PERRL, conjuntiva pink, sclera anicteric Pupils: Present: PERRL - Neck Neck exam general surgery: Present: supple, trachea midline. Absent: lymphadenopathy - Respiratory Respiratory exam: Present: CTAB. Absent: accessory muscle use, rales, rhonchi, wheezes - Cardiovascular Cardiovascular exam: Present: RRR, +S1, +S2. Absent: diastolic murmur, gallop, rubs, systolic murmur - GI/Abdominal GI/Abdominal exam: Present: normal bowel sounds, soft, no peritoneal signs. Absent: distended, tenderness - Extremities Exam Extremities exam: Present: pedal edema, warm, radial pulses palpable and symmetrical. Absent: calf tenderness, cyanotic - Neurological Exam Neurological exam: Present: CN II-XII intact, oriented X3, no focal deficits. Absent: pronater drift, facial droop, speech deficit - Skin Skin exam: Present: dry, intact Internal Medicine: Result - Labs CBC & Chem 7: 01/15/18 18:44 01/18/18 05:33 Labs: BMP 01/18/18 05:33 Sodium 137 Potassium 3.8 Chloride 103 Carbon Dioxide 27 BUN 21 Creatinine 0.69 Glucose 105 Calcium 8.6 - ABG Interpretation ABG results: PT/INR, D-dimer PT 12.5 Seconds (9.4-12.1) H 01/18/18 05:33 Consult Discharge Plan - Plan Referrals: Barbara Mcnamara, HEALTHCARE ADMINISTRATION INTERN [Primary Care Provider] -
[2018-01-18] MEDS ORDERED: *HR* Warfarin 3 MG TABLET PO SCH (18:00)
[2018-01-18] MEDS ORDERED: Warfarin perPT PO PRN (18:00)
[2018-01-19 05:52] LABS: INR 1.4; Prothrombin Time 14.7 Seconds (9.4-12.1)
[2018-01-19 06:50] LABS: BUN/Creatinine Ratio 33 (6-26); Blood Urea Nitrogen 24 mg/dL (8-23); Calcium 8.3 mg/dL (8.6-10.3); Carbon Dioxide 24 mEq/L (23-29); Chloride 103 mEq/L (98-107); Glucose 98 mg/dL (70-105); Osmolality,Calculated 286 (280-300); Sodium 136 mEq/L (136-145); eGFR For African Americans > 60 (> 60); eGFR For Non-African Americans > 60 (> 60)
--- NOTE | 2018-01-19 08:23 | Discharge Summary ---
<YassineAdán - Last Filed: 01/19/18 08:20> Orders not resulted at time of discharge: Pending orders 01/20/18 04:00 PT/INR [Prothrombin Time INR] [COAG] AM 0400 01/21/18 04:00 PT/INR [Prothrombin Time INR] [COAG] AM 0400 01/22/18 04:00 PT/INR [Prothrombin Time INR] [COAG] AM 0400 Date of Encounter: 01/19/18 Time of Encounter: 08:10 - Discharge Diagnosis (1) Acute diastolic heart failure Priority: Primary Status: Acute (2) Atrial fibrillation Priority: Primary Status: Acute Qualifiers: Atrial fibrillation type: chronic Qualified Code(s): I48.2 - Chronic atrial fibrillation (3) Hypertension Priority: Primary Status: Acute Qualifiers: Hypertension type: essential hypertension Qualified Code(s): I10 - Essential (primary) hypertension (4) Venous stasis of lower extremity Priority: Primary Status: Acute (5) DVT prophylaxis Priority: Primary Status: Acute Hospital course: Ms. Santana is a 72 year old female with hx of AFib and CHF who presents with progressive SOB, weight gain, LE swelling. Patient was admitted for CHF exacerbation. CXR showed atelectasis versus edema versus pneumonia. Afebrile. Normal ABC count. BNP 430. Echocardiogram was ordered and showed EF 60-65%. LE U /S negative. Patient was IV Lasix and on strict fluid control. Repeat CXR shows Overall improvement of mild pulmonary edema. Small bilateral pleural effusions noted. Weight has decreased from 74 to 70 kg. -3447 ml since admission. ON Coumadin for A-fib. INR is sub-therapeutic at 1.4. Rate controlled with metoprolol. On Lasix 40 mg IV. BP controlled with lisinopril, metpprolol, and amlodipine. Patient currently afebrile. BP at 144/83. OS of 96% on RA. Patient says that she is feeling well today. She denies any shortness of breath, orthopnea, cough, nausea, vomiting, abdominal pain, fever, chills, dysuria, diarrhea, hematochezia. PT/OT recommends patient to be send to a rehab facility upon discharge. Patient has refused to be sent to a rehab facility and has also refused to have home health aide. She was explained the risks of not going to a short term rehab and she understood. Patient's home medication will be modified to 40 mg lasix in the morning and 20 mg lasix at night. Patient's INR is subtherapeutic now, however she has no history of CVA. Patient will need to follow-up with PCP in 1 week and also follow-up with cardiology. Discharge discussed with: patient - Time Spent with Patient Total time spent providing and/or coordinating discharge services: Greater than 30 minutes - Discharge Medications Prescriptions: Furosemide [Lasix] 20 mg PO DAILY #42 tablet Home Medications: Atorvastatin Calcium [Lipitor] 20 mg PO HS 12/19/17 [History] Metoprolol Succinate [Toprol Xl] 50 mg PO DAILY 12/22/17 [History] Aspirin [Lo-Dose Aspirin EC] 81 mg PO DAILY 01/15/18 [History] Buspirone HCl [Buspar] 7.5 mg PO BID PRN 01/15/18 [History] Lisinopril [Zestril] 10 mg PO DAILY 01/15/18 [History] Nitroglycerin [Nitrostat] 0.4 mg SL Q5M PRN 01/15/18 [History] Warfarin Sodium 3 mg PO DAILY 01/15/18 [History] Furosemide [Lasix] 20 mg PO DAILY #42 tablet 01/19/18 [Rx] Allergies/Adverse Reactions: 3 Allergy/AdvReac Type Severity Reaction Status Date / Time aspirin [ASA] AdvReac Abdominal Verified 01/15/18 20:42 Pain promethazine [From Phenergan] AdvReac Confusion Verified 01/15/18 14:04 Date of admission: 01/16/18 00:45 Primary care physician: Barbara Mcnamara CNP Consults: 01/16/18 17:32 Consult to Wound Care [CONS] Routine Reason for Consult: Bilateral lower extremity wounds Call Completed: Yes 01/17/18 10:11 Consult to Occupational Therapy [CONS] Routine Comment: Evaluate, develop and implement POC Reason for Consult: possible rehab Does patient have active BEDREST order?: No Is patient medically & hemodynamically stable?: Yes Consult to Physical Therapy [CONS] Routine Comment: Evaluate, develop and implement POC Reason for Consult: possible rehab Does patient have active BEDREST order?: No Is patient medically & hemodynamically stable?: Yes Patient assessed for mobility or mobilized this visit?: No 01/17/18 15:06 Consult to Application Helper [CONS] Routine Reason for SW Consult: PT/OT recommending rehab 01/17/18 15:16 Consult to Nurse Navigator [CONS] Routine Comment: CHF Discharging clinician: Adán Metzger Anticipated date of discharge: 01/19/18 - Constitutional Vitals: Temp Pulse Resp BP Pulse Ox 97.4 F L 84 18 144/83 96 01/19/18 07:00 01/19/18 07:00 01/19/18 07:00 01/19/18 07:00 01/19/18 07:00 General appearance: Present: A&O X 3, no acute distress - Respiratory Respiratory exam: Present: CTAB. Absent: accessory muscle use, rales, rhonchi, wheezes - Cardiovascular Cardiovascular exam: Present: irregular rhythm, systolic murmur. Absent: bradycardia, diastolic murmur, tachycardia - GI/Abdominal GI/Abdominal exam: Present: normal bowel sounds, soft, no peritoneal signs. Absent: distended, tenderness - Extremities Exam Extremities exam: Present: normal capillary refill, normal inspection, warm, radial pulses palpable and symmetrical. Absent: calf tenderness, cyanotic, pedal edema, tenderness Additional comments: Minor swelling of LE b/L but is non-pitting edema. - Patient Status Disposition: Home, Self-Care Condition: Good Functional capacity at discharge: uses cane/walker Overall status at discharge: patient is progressing back to baseline - Discharge Instructions Follow Up With: Barbara Mcnamara, [employer]MINISTRATION [employer] [Primary Care Provider] - - Diet and Activity Activity: ambulate only with your walker Diet: low salt diet <Derrick Duff H - Last Filed: 01/19/18 08:46> Orders not resulted at time of discharge: Pending orders 01/20/18 04:00 PT/INR [Prothrombin Time INR] [COAG] AM 0400 01/21/18 04:00 PT/INR [Prothrombin Time INR] [COAG] AM 0400 01/22/18 04:00 PT/INR [Prothrombin Time INR] [COAG] AM 0400 Date of Encounter: 01/19/18 Hospital course: Ms. Santana is a 72 year old female - Time Spent with Patient Total time spent providing and/or coordinating discharge services: Date of admission: 01/16/18 00:45 Primary care physician: Barbara Mcnamara CNP Consults: 01/16/18 17:32 Consult to Wound Care [CONS] Routine Reason for Consult: Bilateral lower extremity wounds Call Completed: Yes 01/17/18 10:11 Consult to Occupational Therapy [CONS] Routine Comment: Evaluate, develop and implement POC Reason for Consult: possible rehab Does patient have active BEDREST order?: No Is patient medically & hemodynamically stable?: Yes Consult to Physical Therapy [CONS] Routine Comment: Evaluate, develop and implement POC Reason for Consult: possible rehab Does patient have active BEDREST order?: No Is patient medically & hemodynamically stable?: Yes Patient assessed for mobility or mobilized this visit?: No 01/17/18 15:06 Consult to Application Helper [CONS] Routine Reason for SW Consult: PT/OT recommending rehab 01/17/18 15:16 Consult to Nurse Navigator [CONS] Routine Comment: CHF - Constitutional Vitals: Temp Pulse Resp BP Pulse Ox 97.4 F L 84 18 144/83 96 01/19/18 07:00 01/19/18 07:00 01/19/18 07:00 01/19/18 07:00 01/19/18 07:00 - Attending Attestation acute diastolic CHF exacerbation Increase Lasix to 40 mg in the morning and 20 mg in the afternoon, minimize fluid intake at home time spent: 40 min I examined this patient and my medical decision-making was reviewed with the Resident Physician. I agree with the documented findings, disposition and treatment plan as described except to the extent set forth below.
[2018-01-19] MEDS: Metoprolol XL (24 HR) Succ 50 MG TAB.ER.24H PO SCH (10:34)
[2018-01-19] MEDS: Aspirin Enteric Coated 81 MG Tablet PO SCH (10:34)
[2018-01-19] MEDS: amLODIPine 5 MG TABLET PO SCH (10:34)
[2018-01-19] MEDS: Furosemide 40 MG/4 ML VIAL IVP SCH (10:35)
[2018-01-19 11:31] VITALS: BP 129/77
== END 2018-01-19 17:27 | disposition home or self-care (01) | DRG 293 ==
LOC: EMEROO 17:42 → 2SOUTHHOLD 17:42 → 2NENU 01-16 21:19
PROVIDERS: ADMIT Internal Medicine Hematology & Oncology; ATTEND Internal Medicine Hematology & Oncology

== ENCOUNTER 2020-01-09 18:55 | Inpatient (IN) ==
[2020-01-09] MEDS ORDERED: Ipratropium/Albuterol Neb 3 ML IH ONE (19:29)
[2020-01-09] MEDS ORDERED: methylPREDNISolone 125 MG/2 ML VIAL IVP ONE (19:29)
[2020-01-09] MEDS ORDERED: 0.9 % Sodium Chloride 1,000 ML IVC ONE (19:30)
[2020-01-09 19:40] LABS: Basophils % 0.5 %; Eosinophils % 0.5 %; Hematocrit 45.1 % (35.3-44.9); Lymphocytes # 0.7 K/mcL (0.6-4.6); Lymphocytes % 11.3 %; Mean Corpuscular HGB Conc 33.3 g/dL (31.6-35.5); Mean Corpuscular Hemoglobin 30.7 pg (28.0-33.3); Mean Corpuscular Volume 92.4 fL (83.0-100.0); Mean Platelet Volume 8.8 fL (9.4-12.4); Monocytes # 0.7 K/mcL (0.0-1.3); Monocytes % 11.6 %; Neutrophils # 4.6 K/mcL (1.6-8.9); Platelet Count 238 K/mcL (140-400); Red Blood Count 4.88 M/mcL (3.82-4.97); Red Cell Distribution Width 13.8 % (11.5-14.5); Segmented Neutrophils % 75.1 %; White Blood Count 6.1 K/mcL (4.3-11.1)
[2020-01-09 19:44] LABS: INR 1.2; Prothrombin Time 13.6 Seconds (9.4-12.1)
[2020-01-09 19:47] LABS: Activated Partial Thrombo Time 36.3 Seconds (26.0-36.0)
[2020-01-09 19:51] LABS: Bilirubin,Urine Negative (Negative); Blood,Urine Large (Negative); Clarity,Urine Cloudy (Clear); Color,Urine Yellow (Yellow); Glucose,Urine (UA) Normal (Normal); Ketones,Urine Negative (Negative); Leukocyte Esterase,Urine Small (Negative); Nitrite,Urine Negative (Negative); Protein,Urine Negative (Neg-Trace); Specific Gravity,Urine 1.017 (1.010-1.025); Urobilinogen,Urine Normal (Normal)
[2020-01-09 19:53] LABS: Bacteria,Urine Few per hpf (None-Few); Hyaline Casts,Urine None Seen per lpf (None-Few); Squamous Epithelial Cell,Urine Many per lpf (None-Few)
[2020-01-09 19:59] LABS: Alanine Aminotransferase 10 Units/L (7-52); Albumin 4.4 g/dL (3.5-5.7); Albumin/Globulin Ratio 1.4 (1.1-2.2); Alkaline Phosphatase 81 Units/L (34-104); Aspartate Amino Transferase 12 Units/L (13-39); BUN/Creatinine Ratio 25 (6-26); Bilirubin,Total 0.6 mg/dL (0.3-1.0); Blood Urea Nitrogen 20 mg/dL (8-23); Calcium 9.4 mg/dL (8.6-10.3); Carbon Dioxide 25 mEq/L (23-29); Chloride 105 mEq/L (98-107); Globulin 3.1 g/dL (2.4-3.5); Glucose 111 mg/dL (70-105); Osmolality,Calculated 287 (280-300); Potassium 4.3 mEq/L (3.5-5.1); Sodium 137 mEq/L (136-145); Total Protein 7.5 g/dL (6.4-8.9); Troponin I < 0.03 ng/mL (< 0.04); eGFR For African Americans > 60 (> 60); eGFR For Non-African Americans > 60 (> 60)
[2020-01-09] MEDS ORDERED: Azithromycin 500 MG in 0.9 % Sodium Chloride 250 ML IVPB ONE (20:57)
[2020-01-09] MEDS ORDERED: cefTRIAXone 1,000 MG in Water for inj. (sterile) 10 ML IVP ONE (20:57)
[2020-01-09] MEDS ORDERED: lisinopriL 10 MG TABLET PO ONE (21:16)
[2020-01-09 21:40] LABS: Adenovirus Not Detected (Not Detect); Bordetella Pertussis Not Detected (Not Detect); Chlamydophila pneumoniae Not Detected (Not Detect); Coronavirus 229E Not Detected (Not Detect); Coronavirus HKU1 Not Detected (Not Detect); Coronavirus NL63 Not Detected (Not Detect); Coronavirus OC43 Not Detected (Not Detect); Human Metapneumovirus DETECTED (Not Detect); Human Rhinovirus/Enterovirus Not Detected (Not Detect); Influenza A Subtype 2009 H1 Not Detected (Not Detect); Influenza B Not Detected (Not Detect); Mycoplasma pneumoniae Not Detected (Not Detect); Parainfluenza Virus 1 Not Detected (Not Detect); Parainfluenza Virus 2 Not Detected (Not Detect); Parainfluenza Virus 3 Not Detected (Not Detect); Parainfluenza Virus 4 Not Detected (Not Detect); Respiratory Syncytial Virus Not Detected (Not Detect)
[2020-01-09] MEDS ORDERED: Naloxone 0.4 MG/ML INJ IVP PRN (22:45)
[2020-01-09] MEDS ORDERED: 0.9 % Sodium Chloride 1,000 ML IVC SCH (22:45)
[2020-01-09] MEDS: Acetaminophen 325 MG TABLET PO PRN (23:35)
[2020-01-09] MEDS: Apixaban 5 MG TABLET PO SCH (23:35)
[2020-01-09] MEDS: traZODone 50 MG TABLET PO SCH (23:35)
[2020-01-10 03:31] LABS: Hematocrit 41.1 % (35.3-44.9); Hemoglobin 13.7 g/dL (11.5-15.4); Mean Corpuscular HGB Conc 33.3 g/dL (31.6-35.5); Mean Corpuscular Hemoglobin 31.6 pg (28.0-33.3); Mean Corpuscular Volume 94.9 fL (83.0-100.0); Mean Platelet Volume 9.5 fL (9.4-12.4); Platelet Count 220 K/mcL (140-400); Red Blood Count 4.33 M/mcL (3.82-4.97); Red Cell Distribution Width 13.6 % (11.5-14.5); White Blood Count 5.4 K/mcL (4.3-11.1)
[2020-01-10 03:51] LABS: BUN/Creatinine Ratio 25 (6-26); Blood Urea Nitrogen 15 mg/dL (8-23); Calcium 8.6 mg/dL (8.6-10.3); Carbon Dioxide 20 mEq/L (23-29); Chloride 108 mEq/L (98-107); Glucose 168 mg/dL (70-105); Magnesium 1.8 mg/dL (1.6-2.6); Osmolality,Calculated 291 (280-300); Phosphorous 3.1 mg/dL (2.7-4.5); Sodium 138 mEq/L (136-145); eGFR For African Americans > 60 (> 60); eGFR For Non-African Americans > 60 (> 60)
[2020-01-10] MEDS: Ipratropium/Albuterol Neb 3 ML IH SCH ×4 (04:12→23:02)
[2020-01-10] MEDS: cefTRIAXone 1,000 MG in Water for inj. (sterile) 10 ML IVP SCH (09:36)
[2020-01-10] MEDS: predniSONE 20 MG TABLET PO SCH (09:36)
[2020-01-10] MEDS: lisinopriL 20 MG TABLET PO SCH (09:36)
[2020-01-10] MEDS: Metoprolol 100 MG TABLET PO SCH (09:36)
[2020-01-10] MEDS: Aspirin Enteric Coated 81 MG Tablet PO SCH (09:36)
[2020-01-10] MEDS: Apixaban 5 MG TABLET PO SCH (09:36)
[2020-01-10] MEDS: Acetaminophen 325 MG TABLET PO PRN ×2 (09:37→20:13)
[2020-01-10] MEDS ORDERED: Fluticasone Propionate Nasal 50 MCG/SPRAY BOTTLE NS PRN (11:55)
[2020-01-10] MEDS: traZODone 50 MG TABLET PO SCH (20:13)
[2020-01-10] MEDS: Azithromycin 500 MG in D5% in Water 250 ML IVPB SCH (20:13)
[2020-01-11 02:58] LABS: Hematocrit 41.3 % (35.3-44.9); Hemoglobin 13.6 g/dL (11.5-15.4); Mean Corpuscular HGB Conc 32.9 g/dL (31.6-35.5); Mean Corpuscular Hemoglobin 31.6 pg (28.0-33.3); Mean Platelet Volume 9.1 fL (9.4-12.4); Platelet Count 243 K/mcL (140-400); White Blood Count 6.3 K/mcL (4.3-11.1)
[2020-01-11 03:13] LABS: INR 1.1; Prothrombin Time 12.1 Seconds (9.4-12.1)
[2020-01-11 03:19] LABS: BUN/Creatinine Ratio 27 (6-26); Blood Urea Nitrogen 21 mg/dL (8-23); Calcium 8.8 mg/dL (8.6-10.3); Carbon Dioxide 26 mEq/L (23-29); Chloride 105 mEq/L (98-107); Glucose 102 mg/dL (70-105); Osmolality,Calculated 287 (280-300); Potassium 4.1 mEq/L (3.5-5.1); Sodium 137 mEq/L (136-145); eGFR For African Americans > 60 (> 60); eGFR For Non-African Americans > 60 (> 60)
[2020-01-11] MEDS: Ipratropium/Albuterol Neb 3 ML IH SCH ×4 (04:25→23:17)
[2020-01-11] MEDS ORDERED: *HR* Propofol 200 MG/20 ML VIAL IVP ONE (07:55)
[2020-01-11] MEDS ORDERED: *HR* FentaNYL (PF) 100 MCG/2 ML VIAL ONE (07:55)
[2020-01-11] MEDS ORDERED: Dexamethasone 4 MG/ML VIAL ONE (08:09)
[2020-01-11] MEDS ORDERED: Ondansetron 4 MG/2 ML VIAL ONE (08:09)
[2020-01-11] MEDS ORDERED: *HR* Labetalol 20 MG/4 ML SYRINGE IVP PRN (09:13)
[2020-01-11] MEDS: Albuterol 2.5 MG/3 ML NEBULIZER IH PRN (10:08)
[2020-01-11] MEDS: predniSONE 20 MG TABLET PO SCH (11:24)
[2020-01-11] MEDS: Metoprolol 100 MG TABLET PO SCH (11:25)
[2020-01-11] MEDS: lisinopriL 20 MG TABLET PO SCH (11:25)
[2020-01-11] MEDS: Furosemide 40 MG TABLET PO SCH (11:25)
[2020-01-11] MEDS: cefTRIAXone 1,000 MG in Water for inj. (sterile) 10 ML IVP SCH (11:25)
[2020-01-11] MEDS: Aspirin Enteric Coated 81 MG Tablet PO SCH (11:25)
[2020-01-11] MEDS: *HR* HYDROcodone/Acet 5/325 mg TABLET PO PRN ×2 (11:48→21:00)
[2020-01-11 15:04] LABS: Appearance of Body Fluid Hazy (Clear); Volume of Body Fluid 15 mL
[2020-01-11] MEDS: Acetaminophen 325 MG TABLET PO PRN (18:51)
[2020-01-11] MEDS: Azithromycin 500 MG in D5% in Water 250 ML IVPB SCH (20:50)
[2020-01-11] MEDS: traZODone 50 MG TABLET PO SCH (20:51)
[2020-01-11] MEDS ORDERED: Apixaban 5 MG TABLET PO SCH (21:00)
[2020-01-12] MEDS: *HR* HYDROcodone/Acet 5/325 mg TABLET PO PRN (04:08)
[2020-01-12] MEDS: Ipratropium/Albuterol Neb 3 ML IH SCH ×4 (04:11→22:01)
[2020-01-12] MEDS: Metoprolol 100 MG TABLET PO SCH (05:26)
[2020-01-12] MEDS ORDERED: Morphine Sulfate 2 MG/ML SYRINGE IVP ONE ×2 (05:33→06:54)
[2020-01-12 07:24] LABS: Basophils % 0.1 %; Eosinophils % 0.1 %; Hematocrit 40.6 % (35.3-44.9); Hemoglobin 13.3 g/dL (11.5-15.4); Immature Granulocytes % 0.5 % (0-4); Lymphocytes # 0.6 K/mcL (0.6-4.6); Lymphocytes % 5.6 %; Mean Corpuscular HGB Conc 32.8 g/dL (31.6-35.5); Mean Corpuscular Hemoglobin 31.6 pg (28.0-33.3); Mean Corpuscular Volume 96.4 fL (83.0-100.0); Mean Platelet Volume 9.2 fL (9.4-12.4); Monocytes # 0.8 K/mcL (0.0-1.3); Monocytes % 7.5 %; Neutrophils # 9.5 K/mcL (1.6-8.9); Platelet Count 241 K/mcL (140-400); Red Blood Count 4.21 M/mcL (3.82-4.97); Red Cell Distribution Width 14.2 % (11.5-14.5); Segmented Neutrophils % 86.2 %
[2020-01-12 07:35] LABS: BUN/Creatinine Ratio 29 (6-26); Blood Urea Nitrogen 20 mg/dL (8-23); Calcium 8.6 mg/dL (8.6-10.3); Carbon Dioxide 24 mEq/L (23-29); Chloride 102 mEq/L (98-107); Glucose 122 mg/dL (70-105); Osmolality,Calculated 284 (280-300); Potassium 3.9 mEq/L (3.5-5.1); Sodium 135 mEq/L (136-145); eGFR For African Americans > 60 (> 60); eGFR For Non-African Americans > 60 (> 60)
[2020-01-12] MEDS: Furosemide 40 MG TABLET PO SCH (07:46)
[2020-01-12] MEDS: predniSONE 20 MG TABLET PO SCH (07:46)
[2020-01-12] MEDS: lisinopriL 20 MG TABLET PO SCH (07:46)
[2020-01-12] MEDS ORDERED: Ketorolac 15 MG/ML VIAL IVP PRN (07:51)
[2020-01-12] MEDS ORDERED: Apixaban 5 MG TABLET PO SCH (09:00)
[2020-01-12] MEDS: cefTRIAXone 1,000 MG in Water for inj. (sterile) 10 ML IVP SCH (09:29)
[2020-01-12] MEDS ORDERED: *HR* HYDROmorphone (PF) 1 MG/ML SYRINGE IVP PRN (09:30)
[2020-01-12] MEDS: Aspirin Enteric Coated 81 MG Tablet PO SCH (09:53)
[2020-01-12 12:05] LABS: Hematocrit 37.5 % (35.3-44.9); Hemoglobin 12.2 g/dL (11.5-15.4)
[2020-01-12 12:06] LABS: INR 1.1; Prothrombin Time 12.1 Seconds (9.4-12.1)
[2020-01-12 17:05] LABS: Hemoglobin 12.7 g/dL (11.5-15.4)
[2020-01-12] MEDS: Azithromycin 500 MG in D5% in Water 250 ML IVPB SCH (20:16)
[2020-01-12] MEDS: traZODone 50 MG TABLET PO SCH (20:16)
[2020-01-12 20:57] LABS: Hematocrit 41.8 % (35.3-44.9)
[2020-01-12 20:58] LABS: Hemoglobin 15.9 g/dL (11.5-15.4)
[2020-01-13 01:10] LABS: Hematocrit 38.3 % (35.3-44.9)
[2020-01-13 01:11] LABS: Hemoglobin 12.5 g/dL (11.5-15.4)
[2020-01-13 01:20] LABS: BUN/Creatinine Ratio 28 (6-26); Blood Urea Nitrogen 19 mg/dL (8-23); Calcium 8.5 mg/dL (8.6-10.3); Carbon Dioxide 26 mEq/L (23-29); Chloride 101 mEq/L (98-107); Glucose 115 mg/dL (70-105); Osmolality,Calculated 279 (280-300); Potassium 4.3 mEq/L (3.5-5.1); Sodium 133 mEq/L (136-145); eGFR For African Americans > 60 (> 60); eGFR For Non-African Americans > 60 (> 60)
[2020-01-13] MEDS: Ipratropium/Albuterol Neb 3 ML IH SCH ×4 (03:39→22:27)
[2020-01-13] MEDS: Furosemide 40 MG TABLET PO SCH (08:42)
[2020-01-13] MEDS: lisinopriL 20 MG TABLET PO SCH (08:42)
[2020-01-13] MEDS: cefTRIAXone 1,000 MG in Water for inj. (sterile) 10 ML IVP SCH (08:42)
[2020-01-13] MEDS: predniSONE 20 MG TABLET PO SCH (08:42)
[2020-01-13 12:19] LABS: Hematocrit 36.2 % (35.3-44.9); Hemoglobin 11.7 g/dL (11.5-15.4)
[2020-01-13] MEDS: traZODone 50 MG TABLET PO SCH (21:16)
[2020-01-14] MEDS: Ipratropium/Albuterol Neb 3 ML IH SCH ×4 (03:31→23:37)
[2020-01-14 04:41] LABS: Hemoglobin 12.6 g/dL (11.5-15.4); Mean Corpuscular HGB Conc 32.3 g/dL (31.6-35.5); Mean Corpuscular Hemoglobin 31.3 pg (28.0-33.3); Mean Corpuscular Volume 96.8 fL (83.0-100.0); Mean Platelet Volume 9.2 fL (9.4-12.4); Platelet Count 210 K/mcL (140-400); Red Blood Count 4.03 M/mcL (3.82-4.97); Red Cell Distribution Width 13.9 % (11.5-14.5); White Blood Count 9.3 K/mcL (4.3-11.1)
[2020-01-14 05:16] LABS: BUN/Creatinine Ratio 31 (6-26); Blood Urea Nitrogen 21 mg/dL (8-23); Carbon Dioxide 33 mEq/L (23-29); Chloride 96 mEq/L (98-107); Glucose 100 mg/dL (70-105); Osmolality,Calculated 285 (280-300); Potassium 4.2 mEq/L (3.5-5.1); Sodium 136 mEq/L (136-145); eGFR For African Americans > 60 (> 60); eGFR For Non-African Americans > 60 (> 60)
[2020-01-14] MEDS: lisinopriL 20 MG TABLET PO SCH (09:03)
[2020-01-14] MEDS: predniSONE 20 MG TABLET PO SCH (09:03)
[2020-01-14] MEDS: cefTRIAXone 1,000 MG in Water for inj. (sterile) 10 ML IVP SCH (09:03)
[2020-01-14] MEDS ORDERED: Furosemide 40 MG/4 ML VIAL IVP ONE (20:41)
[2020-01-14] MEDS: GuaiFENesin/Codeine Oral Soln 5 ML UDC PO PRN (21:04)
[2020-01-14] MEDS: traZODone 50 MG TABLET PO SCH (21:04)
[2020-01-15 02:03] LABS: Hematocrit 37.9 % (35.3-44.9); Hemoglobin 11.7 g/dL (11.5-15.4); Mean Corpuscular HGB Conc 30.9 g/dL (31.6-35.5); Mean Corpuscular Hemoglobin 29.8 pg (28.0-33.3); Mean Corpuscular Volume 96.7 fL (83.0-100.0); Mean Platelet Volume 9.6 fL (9.4-12.4); Platelet Count 245 K/mcL (140-400); Red Blood Count 3.92 M/mcL (3.82-4.97); Red Cell Distribution Width 13.9 % (11.5-14.5); White Blood Count 8.2 K/mcL (4.3-11.1)
[2020-01-15] MEDS: Ipratropium/Albuterol Neb 3 ML IH SCH ×4 (03:48→22:44)
[2020-01-15] MEDS: lisinopriL 20 MG TABLET PO SCH (08:33)
[2020-01-15] MEDS: cefTRIAXone 1,000 MG in Water for inj. (sterile) 10 ML IVP SCH (08:33)
[2020-01-15] MEDS: Furosemide 40 MG/4 ML VIAL IVP SCH ×2 (10:16→22:00)
[2020-01-15 11:15] LABS: BUN/Creatinine Ratio 44 (6-26); Blood Urea Nitrogen 28 mg/dL (8-23); Calcium 9.1 mg/dL (8.6-10.3); Carbon Dioxide 35 mEq/L (23-29); Chloride 97 mEq/L (98-107); Glucose 102 mg/dL (70-105); Osmolality,Calculated 288 (280-300); Potassium 3.6 mEq/L (3.5-5.1); Sodium 136 mEq/L (136-145); eGFR For African Americans > 60 (> 60); eGFR For Non-African Americans > 60 (> 60)
[2020-01-15] MEDS: predniSONE 10 MG TABLET PO SCH (11:18)
[2020-01-15] MEDS: traZODone 50 MG TABLET PO SCH (22:00)
[2020-01-16 03:00] LABS: BUN/Creatinine Ratio 42 (6-26); Blood Urea Nitrogen 28 mg/dL (8-23); Calcium 8.7 mg/dL (8.6-10.3); Carbon Dioxide 34 mEq/L (23-29); Chloride 95 mEq/L (98-107); Glucose 125 mg/dL (70-105); Magnesium 2.1 mg/dL (1.6-2.6); Osmolality,Calculated 289 (280-300); Potassium 3.9 mEq/L (3.5-5.1); Sodium 136 mEq/L (136-145); eGFR For African Americans > 60 (> 60); eGFR For Non-African Americans > 60 (> 60)
[2020-01-16] MEDS: Ipratropium/Albuterol Neb 3 ML IH SCH ×4 (03:55→22:22)
[2020-01-16] MEDS: Furosemide 40 MG/4 ML VIAL IVP SCH ×2 (08:22→20:10)
[2020-01-16] MEDS: lisinopriL 20 MG TABLET PO SCH (08:23)
[2020-01-16] MEDS: predniSONE 10 MG TABLET PO SCH (08:23)
[2020-01-16] MEDS: Acetaminophen 325 MG TABLET PO PRN ×2 (11:57→20:10)
[2020-01-16] MEDS: traZODone 50 MG TABLET PO SCH (20:10)
[2020-01-16] MEDS: GuaiFENesin/Codeine Oral Soln 5 ML UDC PO PRN (20:20)
[2020-01-16] MEDS: Albuterol 2.5 MG/3 ML NEBULIZER IH PRN (20:24)
[2020-01-17 02:52] LABS: BUN/Creatinine Ratio 41 (6-26); Blood Urea Nitrogen 28 mg/dL (8-23); Calcium 8.9 mg/dL (8.6-10.3); Carbon Dioxide 39 mEq/L (23-29); Chloride 93 mEq/L (98-107); Glucose 118 mg/dL (70-105); Magnesium 2.1 mg/dL (1.6-2.6); Osmolality,Calculated 293 (280-300); Potassium 3.6 mEq/L (3.5-5.1); Sodium 138 mEq/L (136-145); eGFR For African Americans > 60 (> 60); eGFR For Non-African Americans > 60 (> 60)
[2020-01-17] MEDS: Ipratropium/Albuterol Neb 3 ML IH SCH ×2 (03:47→11:08)
[2020-01-17] MEDS: Acetaminophen 325 MG TABLET PO PRN (07:56)
[2020-01-17] MEDS: lisinopriL 20 MG TABLET PO SCH (07:58)
[2020-01-17] MEDS: GuaiFENesin/Codeine Oral Soln 5 ML UDC PO PRN (07:59)
[2020-01-17] MEDS: Furosemide 40 MG/4 ML VIAL IVP SCH (07:59)
[2020-01-17] MEDS ORDERED: predniSONE 10 MG TABLET PO SCH (09:00)
[2020-01-17 10:12] VITALS: BP 120/81
== END 2020-01-17 17:06 | disposition home health service (06) | DRG 193 ==
LOC: 2ANU 18:55 → EMEROOARM 18:55 → SUATTDRO 21:52 → 2ANU 22:43
PROVIDERS: ADMIT Internal Medicine; ATTEND Internal Medicine

== ENCOUNTER 2022-04-15 14:10 | Inpatient (IN) ==
[2022-04-15 15:53] LABS: Influenza A PCR Negative (Negative); Influenza B PCR Negative (Negative); Resp. Syncytial Virus PCR Negative (Negative)
[2022-04-15 15:55] LABS: SARS-CoV-2 by PCR (In House) Positive (Negative)
[2022-04-15 17:12] LABS: Basophils % 0.1 %; Hematocrit 45.4 % (35.3-44.9)
[2022-04-15 17:13] LABS: Eosinophils % 0.3 %; Hemoglobin 15.3 g/dL (11.5-15.4); Immature Granulocytes % 0.6 % (0-4); Immature Platelets 5.4 % (1.1-6.1); Lymphocytes # 0.7 K/mcL (0.6-4.6); Lymphocytes % 9.5 %; Mean Corpuscular HGB Conc 33.7 g/dL (31.6-35.5); Mean Corpuscular Volume 92.1 fL (83.0-100.0); Mean Platelet Volume 10.5 fL (9.4-12.4); Monocytes # 0.6 K/mcL (0.0-1.3); Platelet Count 141 K/mcL (140-400); Red Blood Count 4.93 M/mcL (3.82-4.97); Red Cell Distribution Width 12.8 % (11.5-14.5); Segmented Neutrophils % 80.5 %; White Blood Count 7.1 K/mcL (4.3-11.1)
[2022-04-15 17:15] LABS: Neutrophils # 5.7 K/mcL (1.6-8.9)
[2022-04-15 17:30] LABS: Albumin 3.7 g/dL (3.5-5.7); Albumin/Globulin Ratio 1.3 (1.1-2.2); Bilirubin,Total 0.9 mg/dL (0.3-1.0); Calcium 8.8 mg/dL (8.6-10.3); Globulin 2.9 g/dL (2.4-3.5); Potassium 5.3 mEq/L (3.5-5.1); Total Protein 6.6 g/dL (6.4-8.9)
[2022-04-15] MEDS ORDERED: Ringers Solution, Lactated 1,000 ML IVC ONE (17:41)
[2022-04-15] MEDS ORDERED: Naloxone 0.4 MG/ML INJ IVP PRN (17:53)
[2022-04-15] MEDS ORDERED: 0.9 % Sodium Chloride 1,000 ML IVC SCH (18:00)
[2022-04-15] MEDS: *HR* Heparin 5,000 UNIT/ML VIAL SQ SCH (22:01)
[2022-04-15] MEDS: levoFLOXacin 750 MG/150 ML 750 MG/150 ML BAG IVPB SCH (22:02)
[2022-04-16] MEDS ORDERED: *HR* Metoprolol 5 MG/5 ML VIAL IVP ONE (01:16)
[2022-04-16] MEDS ORDERED: Chloraseptic Spray 177 ML BOTTLE MM PRN (02:43)
[2022-04-16] MEDS: Acetaminophen 325 MG TABLET PO PRN (05:17)
[2022-04-16] MEDS: *HR* Heparin 5,000 UNIT/ML VIAL SQ SCH ×2 (05:17→17:44)
[2022-04-16 07:38] LABS: Basophils % 0.4 %; Hemoglobin 15.4 g/dL (11.5-15.4); Mean Corpuscular Volume 92.6 fL (83.0-100.0)
[2022-04-16 07:40] LABS: Eosinophils % 0.4 %; Hematocrit 45.1 % (35.3-44.9); Immature Granulocytes % 1.3 % (0-4); Lymphocytes # 0.6 K/mcL (0.6-4.6); Mean Corpuscular HGB Conc 34.1 g/dL (31.6-35.5); Mean Corpuscular Hemoglobin 31.6 pg (28.0-33.3); Mean Platelet Volume 10.4 fL (9.4-12.4); Monocytes # 0.9 K/mcL (0.0-1.3); Monocytes % 15.9 %; Platelet Count 124 K/mcL (140-400); Red Blood Count 4.87 M/mcL (3.82-4.97); White Blood Count 5.6 K/mcL (4.3-11.1)
[2022-04-16 07:53] LABS: INR 1.2; Prothrombin Time 13.9 Seconds (9.4-12.1)
[2022-04-16 07:56] LABS: Activated Partial Thrombo Time 26.9 Seconds (26.0-36.0)
[2022-04-16 08:18] LABS: BUN/Creatinine Ratio 50 (6-26); Blood Urea Nitrogen 47 mg/dL (8-23); Calcium 8.7 mg/dL (8.6-10.3); Carbon Dioxide 19 mEq/L (23-29); Chloride 98 mEq/L (98-107); Glucose 87 mg/dL (70-105); Osmolality,Calculated 288 (280-300); Phosphorous 2.4 mg/dL (2.7-4.5); Potassium 4.8 mEq/L (3.5-5.1); Sodium 133 mEq/L (136-145); eGFR For African Americans > 60 (> 60); eGFR For Non-African Americans 58 (> 60)
[2022-04-16 09:00] LABS: Platelet Estimate Slight Decrease (Normal)
[2022-04-16] MEDS: levoFLOXacin 750 MG/150 ML 750 MG/150 ML BAG IVPB SCH (09:46)
[2022-04-16] MEDS: Ondansetron 4 MG/2 ML VIAL IVP PRN ×2 (09:46→21:14)
[2022-04-17 03:00] LABS: Hemoglobin 15.1 g/dL (11.5-15.4); Monocytes % 14.4 %
[2022-04-17 03:02] LABS: Basophils % 0.5 %; Hematocrit 44.9 % (35.3-44.9); Immature Granulocytes % 1.7 % (0-4); Immature Platelets 3.5 % (1.1-6.1); Lymphocytes # 0.5 K/mcL (0.6-4.6); Lymphocytes % 7.9 %; Mean Corpuscular HGB Conc 33.6 g/dL (31.6-35.5); Mean Corpuscular Hemoglobin 30.9 pg (28.0-33.3); Mean Platelet Volume 10.3 fL (9.4-12.4); Platelet Count 149 K/mcL (140-400); Red Blood Count 4.88 M/mcL (3.82-4.97); Segmented Neutrophils % 75.5 %; White Blood Count 6.6 K/mcL (4.3-11.1)
[2022-04-17 03:18] LABS: BUN/Creatinine Ratio 27 (6-26); Blood Urea Nitrogen 17 mg/dL (8-23); Carbon Dioxide 22 mEq/L (23-29); Chloride 101 mEq/L (98-107); Glucose 82 mg/dL (70-105); Magnesium 1.6 mg/dL (1.6-2.6); Osmolality,Calculated 285 (280-300); Phosphorous 1.3 mg/dL (2.7-4.5); Potassium 3.8 mEq/L (3.5-5.1); Sodium 137 mEq/L (136-145); eGFR For African Americans > 60 (> 60); eGFR For Non-African Americans > 60 (> 60)
[2022-04-17] MEDS: *HR* Heparin 5,000 UNIT/ML VIAL SQ SCH (05:15)
[2022-04-17] MEDS: Ondansetron 4 MG/2 ML VIAL IVP PRN (05:15)
[2022-04-17] MEDS ORDERED: *HR* Labetalol 20 MG/4 ML SYRINGE IVP ONE (05:24)
[2022-04-17] MEDS: levoFLOXacin 750 MG/150 ML 750 MG/150 ML BAG IVPB SCH (07:46)
[2022-04-17] MEDS: Lisinopril-HCTZ 20-12.5mg TABLET PO SCH (09:12)
[2022-04-17] MEDS: Gabapentin 300 MG CAPSULE PO SCH ×3 (09:12→20:55)
[2022-04-17] MEDS: *HR* Rivaroxaban 15 MG TABLET PO SCH (09:13)
[2022-04-17] MEDS: Acetaminophen 325 MG TABLET PO PRN (16:06)
[2022-04-17] MEDS: traZODone 50 MG TABLET PO SCH (20:56)
[2022-04-18 03:48] LABS: Basophils # 0.1 K/mcL (0.0-0.2); Basophils % 0.8 %; Eosinophils % 0.3 %; Hematocrit 41.2 % (35.3-44.9); Hemoglobin 13.6 g/dL (11.5-15.4); Immature Granulocytes % 2.6 % (0-4); Lymphocytes # 0.9 K/mcL (0.6-4.6); Mean Corpuscular Hemoglobin 31.1 pg (28.0-33.3); Mean Corpuscular Volume 94.3 fL (83.0-100.0); Mean Platelet Volume 10.3 fL (9.4-12.4); Monocytes # 0.8 K/mcL (0.0-1.3); Monocytes % 13.5 %; Neutrophils # 4.2 K/mcL (1.6-8.9); Platelet Count 153 K/mcL (140-400); Red Blood Count 4.37 M/mcL (3.82-4.97); Red Cell Distribution Width 13.2 % (11.5-14.5); Segmented Neutrophils % 68.8 %; White Blood Count 6.2 K/mcL (4.3-11.1)
[2022-04-18 04:13] LABS: BUN/Creatinine Ratio 21 (6-26); Blood Urea Nitrogen 23 mg/dL (8-23); Calcium 8.8 mg/dL (8.6-10.3); Carbon Dioxide 26 mEq/L (23-29); Chloride 101 mEq/L (98-107); Glucose 93 mg/dL (70-105); Magnesium 1.6 mg/dL (1.6-2.6); Osmolality,Calculated 285 (280-300); Potassium 4.3 mEq/L (3.5-5.1); Sodium 136 mEq/L (136-145); eGFR For African Americans > 60 (> 60); eGFR For Non-African Americans 50 (> 60)
[2022-04-18] MEDS: Acetaminophen 325 MG TABLET PO PRN ×2 (05:20→18:53)
[2022-04-18] MEDS ORDERED: 0.9 % Sodium Chloride 1,000 ML IVC ONE (06:55)
[2022-04-18] MEDS ORDERED: levoFLOXacin 750 MG TABLET PO SCH (09:00)
[2022-04-18] MEDS: Lisinopril-HCTZ 20-12.5mg TABLET PO SCH (09:18)
[2022-04-18] MEDS: Gabapentin 300 MG CAPSULE PO SCH ×3 (09:18→22:28)
[2022-04-18] MEDS: *HR* Rivaroxaban 15 MG TABLET PO SCH (09:30)
[2022-04-18] MEDS ORDERED: Lisinopril-HCTZ 20-12.5mg TABLET PO SCH (15:28)
[2022-04-18] MEDS: traZODone 50 MG TABLET PO SCH (22:27)
[2022-04-19] MEDS: Gabapentin 300 MG CAPSULE PO SCH ×3 (10:08→21:25)
[2022-04-19] MEDS: *HR* Rivaroxaban 15 MG TABLET PO SCH (10:08)
[2022-04-19] MEDS: Acetaminophen 325 MG TABLET PO PRN (10:08)
[2022-04-19] MEDS: Lisinopril-HCTZ 20-12.5mg TABLET PO SCH (10:08)
[2022-04-19] MEDS: traZODone 50 MG TABLET PO SCH (21:25)
[2022-04-20 06:51] LABS: Bilirubin,Urine Negative (Negative); Blood,Urine Negative (Negative); Clarity,Urine Clear (Clear); Color,Urine Light-Yellow (Yellow); Glucose,Urine (UA) Normal (Normal); Ketones,Urine Negative (Negative); Leukocyte Esterase,Urine Negative (Negative); Nitrite,Urine Negative (Negative); Protein,Urine Trace mg/dL (Neg-Trace); Specific Gravity,Urine 1.016 (1.010-1.025); Urobilinogen,Urine Normal (Normal)
[2022-04-20] MEDS: Lisinopril-HCTZ 20-12.5mg TABLET PO SCH (08:56)
[2022-04-20] MEDS: *HR* Rivaroxaban 15 MG TABLET PO SCH (08:56)
[2022-04-20] MEDS: Gabapentin 300 MG CAPSULE PO SCH ×3 (08:56→21:34)
[2022-04-20] MEDS ORDERED: levoFLOXacin 750 MG TABLET PO SCH (09:00)
[2022-04-20] MEDS: Acetaminophen 325 MG TABLET PO PRN (13:52)
[2022-04-20] MEDS: traZODone 50 MG TABLET PO SCH (21:34)
[2022-04-21 06:33] LABS: Basophils % 0.3 %; Eosinophils # 0.1 K/mcL (0.0-0.6); Eosinophils % 1.3 %; Hematocrit 39.4 % (35.3-44.9); Hemoglobin 12.8 g/dL (11.5-15.4); Immature Granulocytes % 8.4 % (0-4); Lymphocytes # 0.9 K/mcL (0.6-4.6); Lymphocytes % 13.5 %; Mean Corpuscular HGB Conc 32.5 g/dL (31.6-35.5); Mean Corpuscular Volume 95.4 fL (83.0-100.0); Mean Platelet Volume 9.5 fL (9.4-12.4); Monocytes % 14.5 %; Neutrophils # 4.3 K/mcL (1.6-8.9); Platelet Count 164 K/mcL (140-400); Red Blood Count 4.13 M/mcL (3.82-4.97); Red Cell Distribution Width 13.3 % (11.5-14.5); White Blood Count 6.9 K/mcL (4.3-11.1)
[2022-04-21 06:51] LABS: Platelet Estimate Normal (Normal); Reactive Lymphocytes Present (Not Present)
[2022-04-21 07:12] LABS: BUN/Creatinine Ratio 20 (6-26); Blood Urea Nitrogen 17 mg/dL (8-23); Calcium 8.4 mg/dL (8.6-10.3); Carbon Dioxide 29 mEq/L (23-29); Chloride 99 mEq/L (98-107); Glucose 98 mg/dL (70-105); Osmolality,Calculated 280 (280-300); Potassium 4.4 mEq/L (3.5-5.1); Sodium 134 mEq/L (136-145); eGFR For African Americans > 60 (> 60); eGFR For Non-African Americans > 60 (> 60)
[2022-04-21] MEDS: Furosemide 40 MG TABLET PO SCH (10:14)
[2022-04-21] MEDS: Gabapentin 300 MG CAPSULE PO SCH ×3 (10:14→21:49)
[2022-04-21] MEDS: *HR* Rivaroxaban 15 MG TABLET PO SCH (10:15)
[2022-04-21] MEDS: Lisinopril-HCTZ 20-12.5mg TABLET PO SCH (10:15)
[2022-04-21] MEDS: Acetaminophen 325 MG TABLET PO PRN (15:29)
[2022-04-21] MEDS: traZODone 50 MG TABLET PO SCH (21:48)
[2022-04-22] MEDS: *HR* Rivaroxaban 15 MG TABLET PO SCH (08:15)
[2022-04-22] MEDS: Lisinopril-HCTZ 20-12.5mg TABLET PO SCH (08:15)
[2022-04-22] MEDS: Gabapentin 300 MG CAPSULE PO SCH ×3 (08:16→20:48)
[2022-04-22] MEDS: Furosemide 40 MG TABLET PO SCH (08:16)
[2022-04-22] MEDS: Acetaminophen 325 MG TABLET PO PRN (14:12)
[2022-04-22] MEDS: polyethylene glycoL 3350 17 GM POWD.PACK PO SCH (16:17)
[2022-04-22] MEDS ORDERED: 0.9 % Sodium Chloride 500 ML IV ONE (17:00)
[2022-04-22] MEDS: traZODone 50 MG TABLET PO SCH (20:47)
[2022-04-23] MEDS: Lisinopril-HCTZ 20-12.5mg TABLET PO SCH (09:08)
[2022-04-23] MEDS: Furosemide 40 MG TABLET PO SCH (09:08)
[2022-04-23] MEDS: Gabapentin 300 MG CAPSULE PO SCH ×3 (09:08→21:37)
[2022-04-23] MEDS: *HR* Rivaroxaban 15 MG TABLET PO SCH (09:08)
[2022-04-23] MEDS: polyethylene glycoL 3350 17 GM POWD.PACK PO SCH (09:11)
[2022-04-23] MEDS ORDERED: Ipratropium 1 PUFF INHALER IH ONE (15:24)
[2022-04-23] MEDS: Ipratropium 1 PUFF INHALER IH SCH ×3 (15:41→23:15)
[2022-04-23] MEDS ORDERED: Ipratropium/Albuterol Neb 3 ML IH SCH (16:00)
[2022-04-23] MEDS: traZODone 50 MG TABLET PO SCH (21:37)
[2022-04-24] MEDS: Ipratropium 1 PUFF INHALER IH SCH ×2 (03:35→08:00)
[2022-04-24] MEDS: *HR* Rivaroxaban 15 MG TABLET PO SCH (09:39)
[2022-04-24] MEDS: Lisinopril-HCTZ 20-12.5mg TABLET PO SCH (09:39)
[2022-04-24] MEDS: Furosemide 40 MG TABLET PO SCH (09:40)
[2022-04-24] MEDS: Gabapentin 300 MG CAPSULE PO SCH ×3 (09:40→20:19)
[2022-04-24] MEDS: polyethylene glycoL 3350 17 GM POWD.PACK PO SCH (09:40)
[2022-04-24] MEDS ORDERED: Ipratropium 1 PUFF INHALER IH PRN (09:50)
[2022-04-24] MEDS: traZODone 50 MG TABLET PO SCH (20:20)
[2022-04-25] MEDS: Lisinopril-HCTZ 20-12.5mg TABLET PO SCH (08:32)
[2022-04-25] MEDS: Gabapentin 300 MG CAPSULE PO SCH ×3 (08:32→20:25)
[2022-04-25] MEDS: *HR* Rivaroxaban 15 MG TABLET PO SCH (08:32)
[2022-04-25] MEDS: polyethylene glycoL 3350 17 GM POWD.PACK PO SCH (08:32)
[2022-04-25] MEDS: Furosemide 40 MG TABLET PO SCH (08:32)
[2022-04-25] MEDS: traZODone 50 MG TABLET PO SCH (20:25)
[2022-04-26] MEDS: Acetaminophen 325 MG TABLET PO PRN ×2 (09:26→17:07)
[2022-04-26] MEDS: Lisinopril-HCTZ 20-12.5mg TABLET PO SCH (10:38)
[2022-04-26] MEDS: Gabapentin 300 MG CAPSULE PO SCH ×3 (10:38→21:01)
[2022-04-26] MEDS: *HR* Rivaroxaban 15 MG TABLET PO SCH (10:38)
[2022-04-26] MEDS: Furosemide 40 MG TABLET PO SCH (10:38)
[2022-04-26] MEDS: polyethylene glycoL 3350 17 GM POWD.PACK PO SCH (10:38)
[2022-04-26] MEDS: traZODone 50 MG TABLET PO SCH (21:01)
[2022-04-27] MEDS: *HR* Rivaroxaban 15 MG TABLET PO SCH (09:08)
[2022-04-27] MEDS: Furosemide 40 MG TABLET PO SCH (09:08)
[2022-04-27] MEDS: Lisinopril-HCTZ 20-12.5mg TABLET PO SCH (09:08)
[2022-04-27] MEDS: polyethylene glycoL 3350 17 GM POWD.PACK PO SCH (09:08)
[2022-04-27] MEDS: Gabapentin 300 MG CAPSULE PO SCH ×3 (09:08→19:46)
[2022-04-27] MEDS: traZODone 50 MG TABLET PO SCH (19:46)
[2022-04-27] MEDS: Acetaminophen 325 MG TABLET PO PRN (21:53)
[2022-04-28] MEDS: polyethylene glycoL 3350 17 GM POWD.PACK PO SCH ×2 (09:21→09:33)
[2022-04-28] MEDS: Lisinopril-HCTZ 20-12.5mg TABLET PO SCH (09:23)
[2022-04-28] MEDS: Gabapentin 300 MG CAPSULE PO SCH ×3 (09:23→22:15)
[2022-04-28] MEDS: *HR* Rivaroxaban 15 MG TABLET PO SCH (09:24)
[2022-04-28] MEDS: Furosemide 40 MG TABLET PO SCH (09:24)
[2022-04-28] MEDS: Acetaminophen 325 MG TABLET PO PRN (17:10)
[2022-04-28] MEDS: traZODone 50 MG TABLET PO SCH (22:15)
[2022-04-29] MEDS: Lisinopril-HCTZ 20-12.5mg TABLET PO SCH (08:32)
[2022-04-29] MEDS: Gabapentin 300 MG CAPSULE PO SCH ×3 (08:33→14:37)
[2022-04-29] MEDS: *HR* Rivaroxaban 15 MG TABLET PO SCH (08:33)
[2022-04-29] MEDS: Furosemide 40 MG TABLET PO SCH (08:39)
[2022-04-29] MEDS: polyethylene glycoL 3350 17 GM POWD.PACK PO SCH (08:40)
[2022-04-29 11:52] VITALS: BP 101/70; PULSE 61; TEMP 97.4; O2SAT 96
[2022-04-29] MEDS: Acetaminophen 325 MG TABLET PO PRN (14:36)
== END 2022-04-29 18:49 | DRG 177 ==
LOC: 3ANU 14:10 → EMEROOARM 14:10 → SUATTDRO 18:14 → 3ANU 19:04 → SUATTDRO 04-17 14:50
PROVIDERS: ADMIT Internal Medicine; ATTEND Internal Medicine